=== PATIENT | male | born 2000 | race Caucasian/White ===

== ENCOUNTER 2023-11-19 13:59 | Emergency (ER) | payer OTHER, SELFPAY ==
--- NOTE | ~2023-11-19 | XR_ITS ---
EXAMINATION: XR CHEST CLINICAL INFORMATION: Chest pain status post vomiting COMPARISON: None available. TECHNIQUE: 2 views of the chest were obtained. FINDINGS: No significant abnormality is noted involving the heart, lungs, mediastinum, bony thorax or soft tissues. XR/XR chest 2V IMPRESSION: No acute disease. No evidence of pneumothorax or pneumomediastinum.
[2023-11-19 14:06] VITALS: BP 130/82; PULSE 81; O2SAT 98
--- NOTE | 2023-11-19 15:19 | ED.NAVMDI ---
HPI - Nausea/Vomiting/Diarrhea General Chief complaint: ETOH/Substance Use Stated complaint: N/V S/P ETOH RELAPSE S/P 3M CLEAN PER EMS Time Seen by Provider: 11/19/23 16:51 Source: patient Mode of arrival: ambulatory Limitations: no limitations History of Present Illness HPI Narrative: Patient with history of alcohol use was sober for last 3 months started drinking again last night had 15 nips of 100% of VODKA last night and since morning patient been vomiting with epigastric pain radiating to mid chest vomited multiple times having muscle spasm now no diarrhea no fever no chills Related Data Previous Rx's Medication Instructions Recorded cephalexin 500 mg capsule 500 mg PO Q8H 7 days #21 caps 08/11/21 Allergies Allergy/AdvReac Type Severity Reaction Status Date / Time No Known Allergies Allergy Verified 11/19/23 15:20 Review of Systems Review of Systems: Yes all other systems are reviewed and are negative [facility] Social History Social History Advance Directives: No Advance Directives Information Provided: No Physical Exam Vital Signs: Vital Signs: Last Vital Signs Temp 97.7 F 11/19/23 15:20 Pulse 72 11/19/23 16:06 Resp 16 11/19/23 16:06 BP 135/84 11/19/23 16:06 Pulse Ox 99 11/19/23 16:06 O2 Del Method Room Air 11/19/23 16:06 BMI result Body Mass Index 22.7 Appearance: Alert. Oriented X3. Actively vomiting Eyes: PERRLA, No Nystagmus ENT: Pharynx normal. Oral Mucosa dry Neck: Normal inspection. Neck supple. CVS: Normal heart rate and rhythm. Pulses normal. Respiratory: No respiratory distress. Equal air entry bilateral, Abdomen: Soft, mild epigastric tenderness Bowel sounds are present, no mass palpable, no CVA tenderness Skin: Skin warm and dry. Normal skin color. Normal skin turgor. Extremities: No lower extremity edema. No calf tenderness Neuro: Oriented X 3. No motor deficit. Fine tremor+ Course Course Course Narrative: This is an RME: Additional HPI, ROS, PE not included below will be deferred to primary provider. This is a 23 y/o M, hx of etoh abuse, depression and anxiety, presenting to the ER with complaints of nausea and vomiting. He was sober for 3 months and drank 15 nips of 100 proof vodka last night. Started vomiting at 10:00AM this AM. Plan: EKG, Labs, CXR Medications Administered Discontinued Medications Generic Name Dose Route Start Last Admin Trade Name Nicola PRN Reason Stop Dose Admin Famotidine 20 mg 11/19/23 17:05 11/19/23 17:30 Famotidine/Pf 20 Mg/2 Ml Vial IVPUSH 11/19/23 17:06 20 mg ONCE ONE Administration Sodium Chloride 1,000 mls @ 999 mls/hr 11/19/23 17:04 11/19/23 18:18 Ns IV 11/19/23 18:04 Infused .Q1H1M ONE Infusion Sodium Chloride 1,000 mls @ 999 mls/hr 11/19/23 17:08 11/19/23 18:17 Ns IV 11/19/23 18:08 999 mls/hr .Q1H1M ONE Administration Ondansetron HCl 4 mg 11/19/23 15:23 11/19/23 15:26 Ondansetron Odt 4 Mg Tab.Rapdis TRANSLINGU 11/19/23 15:24 4 mg ONCE ONE Administration Ondansetron HCl 4 mg 11/19/23 17:35 11/19/23 17:44 Ondansetron Hcl 4 Mg/2 Ml Vial IVPUSH 11/19/23 17:36 4 mg ONCE ONE Administration Medical Decision Making Medical Decision Making [facility] Narrative: Patient with acute gastritis secondary to alcohol use feeling better after IV fluids and IV Pepcid patient does not need any help will stop drinking has family support discharge patient home taking p.o. fluids in the ER Differential Diagnosis Differential Diagnoses: The differential diagnosis associated with the presentation includes Acute gastritis/pancreatitis/alcohol withdrawal Admission/Observation Consideration of admission/observation: Escalation of care including admission/observation considered Lab Data [facility] Lab Attestation statement: I reviewed the patient's lab results. 11/19/23 15:40 11/19/23 15:40 Labs: Lab Results 11/19/23 Range/Units 15:40 WBC 13.0 H (4.8-10.8) X10*3/uL RBC 4.61 (4.60-5.80) X10*6/uL Hgb 14.2 (14.0-18.0) g/dl Hct 40.4 L (42.0-52.0) % MCV 87.6 (80.0-98.0) fL MCH 30.8 (27.0-33.0) pg MCHC 35.1 (31.0-36.0) g/dl RDW 12.9 (11.0-16.0) % Plt Count 400 (160-400) X10*3/uL MPV 8.9 L (9.4-12.4) fL Immature Gran % (Auto) 0.4 (0.0-0.4) % Neut % (Auto) 83.3 H (45-73) % Lymph % (Auto) 7.6 L (20-40) % Hudson % (Auto) 7.9 (2-11) % Eos % (Auto) 0.1 (0-4) % Baso % (Auto) 0.7 (0-2) % Lymph # (Auto) 1.0 L (1.2-4.9) X10*3/uL Hudson # (Auto) 1.0 (0.1-1.2) X10*3/uL Eos # (Auto) 0.0 (0.0-0.4) X10*3/uL Baso # (Auto) 0.1 (0.0-0.2) X10*3/uL Abs Immat Gran (auto) 0.05 H (0.00-0.03) X10*3/uL Absolute Neuts (auto) 10.8 H (2.0-8.3) x10*3/uL Absolute Nucleated RBC 0.000 (0.0-0.012) X10*3/uL Nucleated RBC % (auto) 0.0 (0.0-0.2) /100WBC Sodium 139 (135-145) mmol/L Potassium 4.1 (3.3-5.1) mmol/L Chloride 97 (96-108) mmol/L Carbon Dioxide 16 L (22-29) mmol/L Anion Gap 30 H (12-20) BUN 10 (9-16) mg/dL Creatinine 1.11 (0.5-1.4) mg/dL Estim Creat Clear Calc 95.3 Estimated GFR > 60 Random Glucose 90 (60-115) mg/dL Calcium 10.2 (8.4-10.2) mg/dL Magnesium 1.7 (1.6-2.6) mg/dL Total Bilirubin 0.7 (0.0-1.0) mg/dL AST 118 H (5-37) U/L ALT 149 H (0-40) U/L Alkaline Phosphatase 100 (39-117) U/L Troponin I High Sens < 2.7 (<3.5-35.0) ng/L Total Protein 8.9 H (6.5-8.0) g/dL Albumin 5.0 (3.5-5.0) g/dL Lipase 12 (8-78) U/L Ethyl Alcohol 116 mg/dL Discharge Plan Discharge Clinical Impression: Acute alcoholic gastritis, Alcohol abuse Patient Disposition: Home, Self-Care Instructions: Gastritis (ED), Abuse of Alcohol (ED) Additional Instructions: Stop drinking alcohol Maalox /Tums as needed for gastritis Follow-up with PCP as needed Prescriptions: No Action cephalexin 500 mg capsule 500 mg PO Q8H 7 Days Qty: 21 0RF
[2023-11-19 15:20] VITALS: BP 132/90; PULSE 77; RESP 18; TEMP 36.5; O2SAT 98; BMI 22.7
--- NOTE | 2023-11-19 15:21 | ECG_ITS ---
Test Reason : CP Blood Pressure : / mmHG Vent. Rate : 063 BPM Atrial Rate : 063 BPM P-R Int : 120 ms QRS Dur : 084 ms QT Int : 432 ms P-R-T Axes : 004 055 038 degrees QTc Int : 442 ms Normal sinus rhythm Normal ECG No previous ECGs available Referred By: Ina Kay Electronically Signed By:ROSALIND SAMPSON MD
[2023-11-19] MEDS: Ondansetron ODT 4 MG TAB.RAPDIS TRANSLINGU (15:26)
[2023-11-19 15:47] LABS: MANUAL DIFF FLAG NO
[2023-11-19 15:56] LABS: Basophils Absolute Auto 0.1 X10*3/uL (0.0-0.2); Basophils Percent Auto 0.7 % (0-2); Eosinophils Percent Auto 0.1 % (0-4); Hematocrit 40.4 % (42.0-52.0); Hemoglobin 14.2 g/dl (14.0-18.0); Imm Gran Abs Auto 0.05 X10*3/uL (0.00-0.03); Imm Gran Pct Auto 0.4 % (0.0-0.4); Lymphocytes Percent Auto 7.6 % (20-40); Mean Corpuscular HGB Conc 35.1 g/dl (31.0-36.0); Mean Corpuscular Hemoglobin 30.8 pg (27.0-33.0); Mean Corpuscular Volume 87.6 fL (80.0-98.0); Mean Platelet Volume 8.9 fL (9.4-12.4); Monocytes Percent Auto 7.9 % (2-11); Neutrophils Absolute Auto 10.8 x10*3/uL (2.0-8.3); Neutrophils Percent Auto 83.3 % (45-73); Platelet Count 400 X10*3/uL (160-400); Red Blood Count 4.61 X10*6/uL (4.60-5.80); Red Cell Distribution Width 12.9 % (11.0-16.0)
[2023-11-19 16:00] LABS: Ethanol 116 mg/dL
[2023-11-19 16:06] VITALS: BP 135/84; PULSE 72; RESP 16; O2SAT 99
[2023-11-19 16:08] LABS: Alanine Aminotransferase 149 U/L (0-40); Alkaline Phosphatase 100 U/L (39-117); Anion Gap 30 (12-20); Aspartate Amino Transferase 118 U/L (5-37); Bilirubin Total 0.7 mg/dL (0.0-1.0); Blood Urea Nitrogen 10 mg/dL (9-16); Calcium 10.2 mg/dL (8.4-10.2); Carbon Dioxide 16 mmol/L (22-29); Chloride 97 mmol/L (96-108); Creatinine Clr Calc Pharmacy 95.3; Estimated Glomerular Filt Rate > 60; Glucose Random 90 mg/dL (60-115); Lipase 12 U/L (8-78); Magnesium 1.7 mg/dL (1.6-2.6); Potassium 4.1 mmol/L (3.3-5.1); Sodium 139 mmol/L (135-145); Total Protein 8.9 g/dL (6.5-8.0)
[2023-11-19 16:13] LABS: Troponin-I High Sensitivity < 2.7 ng/L (<3.5-35.0)
[2023-11-19] MEDS: 0.9 % Sodium Chloride 1,000 ML 999 ML IV ×2 (17:16→18:17)
[2023-11-19] MEDS: Famotidine/PF 20 MG/2 ML VIAL IVPUSH (17:30)
[2023-11-19] MEDS: ondansetron HCL 4 MG/2 ML VIAL IVPUSH (17:44)
--- NOTE | 2023-11-19 18:07 | PC.NURSE ---
20g iv inserted R upper outer arm. first liter of fluids started and meds given as documented. pt's mother is at his bedside.
--- NOTE | 2023-11-19 19:44 | PC.NURSE ---
This RN took over pt care @ 1900. Pt resting quietly in recliner. Mom with pt. Pt denies pain. Pt requested and given drink. Plan of care ongoing.
== END 2023-11-19 21:15 | disposition home or self-care (01) ==
PROVIDERS: Physician Assistant Medical; Emergency Provider Internal Medicine
DX: K29.20 Alcoholic gastritis without bleeding (principal); F10.120 Alcohol abuse with intoxication, uncomplicated; Y90.5 Blood alcohol level of 100-119 mg/100 ml; R11.2 Nausea with vomiting, unspecified; R10.13 Epigastric pain; F32.A Depression, unspecified; F41.9 Anxiety disorder, unspecified
CPT/HCPCS: 36415; 71046; 80053; 80307; 83690; 83735; 84484; 85025; 93005; 96361; 96374; 96375; 99284; 99285; J2405

== ENCOUNTER → 2023-11-19 15:21 | Outpatient (BNV) | payer OTHER, SELFPAY | PROVIDERS: Emergency Provider Internal Medicine; Visit Provider Internal Medicine Cardiovascular Disease | DX: R07.9 Chest pain, unspecified (principal) | CPT/HCPCS: 93010 ==

== ENCOUNTER 2024-06-18 13:43 | Emergency (ER) | payer OTHER, SELFPAY ==
[2024-06-18 14:02] VITALS: BP 143/84; PULSE 95; RESP 18; TEMP 36.7; O2SAT 97; BMI 20.8
--- NOTE | 2024-06-18 14:03 | ED.GENADULT ---
HPI - General Adult General Chief complaint: Abdominal Pain Stated complaint: abd pain Source: patient Mode of arrival: ambulatory Limitations: no limitations History of Present Illness ED Provider: Vicki Canseco PA-C HPI narrative: Patient is a 23 year old assigned male at with no reported medical history presenting to the emergency department today with abdominal pain. Patient states that over the last 7 days he has had abdominal pain and nausea. Patient denies any dizziness, lightheadedness, vomiting, fever, chills, blurry vision, double vision, loss of vision, chest pain, difficulty breathing, shortness of breath, back pain, night sweats, pain with urination, increased urinary frequency, increased urinary urgency, blood in his urine or stool, syncope or a near syncopal episode, recent trauma or falls, bowel incontinence, bladder incontinence, or any other complaints at this time. Onset (ago): day(s) (7) Location: abdomen Relieving factors: none Exacerbating factors: none Associated symptoms: nausea/vomiting Treatments prior to arrival: none Related Data Previous Rx's ?Medication ?Instructions ?Recorded cephalexin 500 mg capsule 500 mg PO Q8H 7 days #21 caps 08/11/21 Allergies Allergy/AdvReac Type Severity Reaction Status Date / Time No Known Allergies Allergy Verified 06/18/24 14:05 Review of Systems Constitutional: Constitutional: Reports no additional constitutional complaints, Denies chills, Denies fever(s) and Denies night sweats Eyes: Eyes: Reports no additional eye complaints, Denies blurry vision, Denies change in vision, Denies diplopia, Denies eye discharge, Denies loss of vision and Denies eye pain ENT: Denies dizziness Cardiovascular: Cardiovascular: Reports no additional cardiovascular complaints, Denies chest pain, Denies lightheadedness, Denies Loss of Consciousness and Denies dyspnea Respiratory: Respiratory: Reports no additional respiratory complaints and Denies dyspnea Gastrointestinal: Gastrointestinal: Reports no additional gastrointestinal complaints, Reports abdominal pain, Denies melena, Denies hematochezia, Denies change in bowel habits, Denies change in stool character and Reports nausea Genitourinary: Genitourinary: Reports no additional male genitourinary complaints, Denies hematuria, Denies oliguria, Denies difficulty urinating, Denies dysuria, Denies urinary frequency, Denies urinary hesitancy, Denies urinary incontinence and Denies urinary urgency Musculoskeletal: Musculoskeletal: Reports no additional musculoskeletal complaints, Denies numbness and Denies tingling Neurologic: Denies dizziness, Denies loss of vision, Denies numbness and Denies tingling Psychiatric: Psychiatric: Reports no additional psychiatric complaints Endocrine: Endocrine: Reports no additional endocrine complaints Hematologic/Lymphatic: Hematologic/Lymphatic: Reports no additional hematologic/lymphatic complaints Allergic/Immunologic: Allergic/Immunologic: Reports no additional allergic/immunologic complaints [facility] Past Medical History Attestation statement: The following information was validated with the patient. Source: old records reviewed and nursing notes reviewed Social History Social History Alcohol intake: current Advance Directives: No Advance Directives Information Provided: No Do you have a plan to hurt others: No Plan Physical Exam ED Vital Signs: BMI result Body Mass Index 20.8 Const General: cooperative, no acute distress, alert and awake Nutritional Appearance: well nourished Orientation/consciousness: patient oriented x3 Limitations: no limitations HENMT Head: Yes normal to inspection and Yes atraumatic Ears: hearing grossly normal bilaterally and external ears normal General nose exam: Normal external nose present, no nasal discharge noted and no epistaxis Face and sinus: Yes normal facial exam, No abrasion and No laceration Mouth: Normal oral and palatal mucosa present, no drooling and no muffled voice Eyes General: appearance normal, both eyes and all related structures Periorbital: periorbital findings normal Eyelids: Yes eyelids normal Conjunctivae: conjunctivae normal Pupils: Equal, round and reactive pupils present EOM: EOMs intact bilaterally Neck Neck: Yes normal visual inspection, Yes full ROM and Yes no lymphadenopathy Chest Chest palpation & inspection: normal inspection of the chest Resp Effort & Inspection: normal respiratory effort and able to speak in complete sentences GI Inspection: Yes normal to inspection Neuro General: patient oriented x3 and moves all extremities Cranial nerves: Yes Equal, round and reactive pupils present Cognition (Neuro): normal cognition Extrem General: Yes normal to inspection, Yes full ROM and Yes capillary refill normal Psych Appearance: grossly normal Mental Status: mental status grossly normal Affect: normal affect Attitude: cooperative Thought process: Normal thought process present Thought content: Normal thought content present Insight: Good insight present (Psych) Course Course Course Narrative: RME performed by Vicki Canseco PA-C. Patient is a 23 year old assigned male at presenting to the emergency department with abdominal pain. Patient states that he has been having abdominal pain over the last few days. Patient states that he was seen at the urgent care and they told him to come here. Detailed physical exam and review of systems are deferred to the disc pad grinder. Labs and swabs ordered. Patient placed back in the waiting room pending room availability and results. Medical Decision Making Medical Decision Making [facility] Narrative: Patient is a 23 year old assigned male at with no reported medical history presenting to the emergency department today with abdominal pain and nausea. Patient's limited physical exam performed in triage was unremarkable. Patient's blood work was unremarkable. Patient left the department without completing treatment. Patient left the department before myself or any of the other emergency department clinicians could explain to or review with the patient; physical exam findings, test results, need or lack there of for additional testing, need or lack there of for a procedure to be performed, need or lack there of for hospital admission / transfer, need or lack there of for prescription medication, treatment options, or a treatment plan. Differential Diagnosis Differential Diagnoses: The differential diagnosis associated with the presentation includes Abdominal pain Nausea Admission/Observation Consideration of admission/observation: Escalation of care including admission/observation considered Patient would have been admitted to the hospital had he completed his work up and it had any findings where hospital admission was appropriate, his clinical presentation warranted hospital admission, had myself or any other emergency sales department supervisor had the ability to discuss need or lack there of for hospital admission, and the patient hadn't left the department without completing treatment. Lab Data [facility] Lab Attestation statement: I reviewed the patient's lab results. My interpretation of these results are in the [facility] Rationale portion of this note. 06/18/24 14:19 06/18/24 14:19 Labs: Lab Results 06/18/24 Range/Units 14:19 WBC 6.4 (4.8-10.8) X10*3/uL RBC 5.09 (4.60-5.80) X10*6/uL Hgb 15.0 (14.0-18.0) g/dl Hct 43.9 (42.0-52.0) % MCV 86.2 (80.0-98.0) fL MCH 29.5 (27.0-33.0) pg MCHC 34.2 (31.0-36.0) g/dl RDW 13.1 (11.0-16.0) % Plt Count 228 D (160-400) X10*3/uL MPV 8.6 L (9.4-12.4) fL Immature Gran % (Auto) 0.5 H (0.0-0.4) % Neut % (Auto) 77.1 H (45-73) % Lymph % (Auto) 12.3 L (20-40) % Caroline % (Auto) 9.3 (2-11) % Eos % (Auto) 0.0 (0-4) % Baso % (Auto) 0.8 (0-2) % Lymph # (Auto) 0.8 L (1.2-4.9) X10*3/uL Caroline # (Auto) 0.6 (0.1-1.2) X10*3/uL Eos # (Auto) 0.0 (0.0-0.4) X10*3/uL Baso # (Auto) 0.1 (0.0-0.2) X10*3/uL Abs Immat Gran (auto) 0.03 (0.00-0.03) X10*3/uL Absolute Neuts (auto) 5.0 (2.0-8.3) x10*3/uL Absolute Nucleated RBC 0.000 (0.0-0.012) X10*3/uL Nucleated RBC % (auto) 0.0 (0.0-0.2) /100WBC Sodium 137 (135-145) mmol/L Potassium 3.8 (3.3-5.1) mmol/L Chloride 99 (96-108) mmol/L Carbon Dioxide 22 (22-29) mmol/L Anion Gap 20 (12-20) BUN 10 (9-16) mg/dL Creatinine 0.89 (0.5-1.4) mg/dL Estim Creat Clear Calc 112.5 Estimated GFR > 60 Random Glucose 92 (60-115) mg/dL Calcium 9.8 (8.4-10.2) mg/dL Magnesium 1.5 L (1.6-2.6) mg/dL Total Bilirubin 0.7 (0.0-1.0) mg/dL AST 43 H (5-37) U/L ALT 40 (0-40) U/L Alkaline Phosphatase 91 (39-117) U/L Total Protein 8.0 (6.5-8.0) g/dL Albumin 4.4 (3.5-5.0) g/dL Influenza Type A (PCR) NEGATIVE (Negative) Influenza Type B (PCR) NEGATIVE (Negative) RSV RNA Qual (PCR) NEGATIVE (Negative) SARS-CoV-2 RNA (RT-PCR) NEGATIVE (Negative) Discharge Plan Discharge Clinical Impression: Abdominal pain Patient Disposition: Left W/O Completing Treatment Prescriptions: No Action cephalexin 500 mg capsule 500 mg PO Q8H 7 Days Qty: 21 0RF Discharge Date/Time: 06/19/24 00:04
[2024-06-18 14:36] LABS: MANUAL DIFF FLAG NO
[2024-06-18 14:42] LABS: Basophils Absolute Auto 0.1 X10*3/uL (0.0-0.2); Basophils Percent Auto 0.8 % (0-2); Hematocrit 43.9 % (42.0-52.0); Imm Gran Abs Auto 0.03 X10*3/uL (0.00-0.03); Imm Gran Pct Auto 0.5 % (0.0-0.4); Lymphocytes Absolute Auto 0.8 X10*3/uL (1.2-4.9); Lymphocytes Percent Auto 12.3 % (20-40); Mean Corpuscular HGB Conc 34.2 g/dl (31.0-36.0); Mean Corpuscular Hemoglobin 29.5 pg (27.0-33.0); Mean Corpuscular Volume 86.2 fL (80.0-98.0); Mean Platelet Volume 8.6 fL (9.4-12.4); Monocytes Absolute Auto 0.6 X10*3/uL (0.1-1.2); Monocytes Percent Auto 9.3 % (2-11); Neutrophils Percent Auto 77.1 % (45-73); Platelet Count 228 X10*3/uL (160-400); Red Blood Count 5.09 X10*6/uL (4.60-5.80); Red Cell Distribution Width 13.1 % (11.0-16.0); White Blood Count 6.4 X10*3/uL (4.8-10.8)
[2024-06-18 14:52] LABS: Alanine Aminotransferase 40 U/L (0-40); Albumin Level 4.4 g/dL (3.5-5.0); Alkaline Phosphatase 91 U/L (39-117); Anion Gap 20 (12-20); Aspartate Amino Transferase 43 U/L (5-37); Bilirubin Total 0.7 mg/dL (0.0-1.0); Blood Urea Nitrogen 10 mg/dL (9-16); Calcium 9.8 mg/dL (8.4-10.2); Carbon Dioxide 22 mmol/L (22-29); Chloride 99 mmol/L (96-108); Creatinine Clr Calc Pharmacy 112.5; Estimated Glomerular Filt Rate > 60; Glucose Random 92 mg/dL (60-115); Magnesium 1.5 mg/dL (1.6-2.6); Potassium 3.8 mmol/L (3.3-5.1); Sodium 137 mmol/L (135-145)
[2024-06-18 15:24] LABS: Influenza A PCR NEGATIVE (Negative); Influenza B PCR NEGATIVE (Negative); Resp Syncy Virus RNA Qual PCR NEGATIVE (Negative); SARS COV2 PCR INHOUSE NEGATIVE (Negative)
[2024-06-18 17:45] VITALS: BP 122/75; PULSE 89; RESP 16; TEMP 36.2; O2SAT 99
--- NOTE | 2024-06-19 00:04 | PC.NURSE ---
called multple times in [place] with no answer
== END 2024-06-19 00:04 | disposition left against medical advice (07) ==
PROVIDERS: Physician Assistant Medical; Emergency Provider Emergency Medicine
DX: R10.9 Unspecified abdominal pain (principal); R11.2 Nausea with vomiting, unspecified; Z03.818 Encounter for observation for suspected exposure to other biological agents ruled out; Z79.899 Other long term (current) drug therapy
CPT/HCPCS: 0241U; 80053; 83735; 85025; 99281

== ENCOUNTER 2024-06-21 06:05 | Emergency (ER) | payer OTHER, SELFPAY ==
--- NOTE | ~2024-06-21 | CT_ITS ---
EXAMINATION: CT ABDOMEN AND PELVIS WITH CONTRAST CLINICAL INFORMATION: Epigastric pain nausea vomiting EtOH abuse COMPARISON: None available. TECHNIQUE: Multidetector volumetric images were obtained from the superior aspect of the liver through the pubic symphysis following administration 85 mL of Omnipaque 350 intravenous contrast. Sagittal and coronal reformatted images were obtained on the technologist's workstation. Oral contrast: No This CT examination was performed using dose optimization techniques as appropriate, variously including the following: *Automated exposure control *Adjustment of mA and/or kV according to patient size (this includes techniques or standardized protocols for targeted exams where dose is matched to indication/reason for exam; i.e. extremities or head) *Use of iterative reconstruction technique DLP: 335 mGy-cm FINDINGS: LUNG BASES: 5 mm pleural-based nodular focus along the lateral aspect left lower lobe (series 3, image 33). 8 mm nodular focus left lower lobe (series 3, image 49). A few tree-in-bud nodular opacities involving the right middle, right lower, and left lower lobe are noted potentially representing infectious/inflammatory etiology. Correlation with symptomatology. No pneumothorax. No large pleural effusion. Slight elevation right hemidiaphragm. LIVER, GALLBLADDER, AND BILIARY TREE: The liver is normal in size, shape, and attenuation. No focal hepatic lesion or biliary ductal dilatation is present. The gallbladder is unremarkable with no evidence of radiopaque gallstones, gallbladder wall thickening, or obvious pericholecystic inflammatory changes. PANCREAS: Unremarkable. SPLEEN: Unremarkable. 5 mm splenule. ADRENAL GLANDS: Unremarkable. KIDNEYS AND URETERS: The kidneys are normal in size, shape, and attenuation. No hydronephrosis, hydroureter, or calculi seen. No perinephric stranding. BLADDER: Urinary bladder decompressed limiting evaluation. GASTROINTESTINAL TRACT: The small and large bowel are unremarkable. The appendix is unremarkable. ABDOMINAL WALL: Fat filled right inguinal hernia. LYMPH NODES: Normal. VASCULAR: Unremarkable. PELVIC VISCERA: Unremarkable. OSSEOUS STRUCTURES: Unremarkable. CT/CT abdomen pelvis w IV con IMPRESSION: 1. No acute process of the abdomen or pelvis identified. 2. 5 mm pleural-based nodular focus along the lateral aspect left lower lobe. 8 mm nodular focus left lower lobe. Follow-up as per Fleischner criteria. 3. A few tree-in-bud nodular opacities involving the right middle, right lower, and left lower lobe are noted potentially representing infectious/inflammatory etiology. Correlation with symptomatology. 4. 5 mm splenule. 5. Fat filled right inguinal hernia. According to the UPDATED 2017 Fleischner Society recommendations, the advised follow-up imaging for multiple solid nodules, the largest measuring 6 mm or greater, is: LOW RISK PATIENT: CT at 3-6 months, then consider CT at 18-24 months.
[2024-06-21 06:06] VITALS: BP 108/89; PULSE 118; RESP 18; TEMP 37.1; O2SAT 96; BMI 23.6
[2024-06-21 06:25] LABS: Eosinophils Absolute Auto 0.1 X10*3/uL (0.0-0.4); Eosinophils Percent Auto 1.8 % (0-4); Hematocrit 47.3 % (42.0-52.0); Hemoglobin 16.7 g/dl (14.0-18.0); Imm Gran Abs Auto 0.02 X10*3/uL (0.00-0.03); Imm Gran Pct Auto 0.5 % (0.0-0.4); Lymphocytes Absolute Auto 1.4 X10*3/uL (1.2-4.9); Lymphocytes Percent Auto 34.9 % (20-40); MANUAL DIFF FLAG SCAN; Mean Corpuscular HGB Conc 35.3 g/dl (31.0-36.0); Mean Corpuscular Volume 84.9 fL (80.0-98.0); Mean Platelet Volume 8.4 fL (9.4-12.4); Monocytes Absolute Auto 0.8 X10*3/uL (0.1-1.2); Monocytes Percent Auto 20.9 % (2-11); Neutrophils Absolute Auto 1.6 x10*3/uL (2.0-8.3); Neutrophils Percent Auto 40.9 % (45-73); Platelet Count 247 X10*3/uL (160-400); Red Blood Count 5.57 X10*6/uL (4.60-5.80); Red Cell Distribution Width 13.3 % (11.0-16.0); SCAN SMEAR FLAG 1; White Blood Count 3.9 X10*3/uL (4.8-10.8)
[2024-06-21 06:40] LABS: Alanine Aminotransferase 34 U/L (0-40); Albumin Level 4.7 g/dL (3.5-5.0); Alkaline Phosphatase 87 U/L (39-117); Anion Gap 14 (12-20); Aspartate Amino Transferase 36 U/L (5-37); Bilirubin Total 0.5 mg/dL (0.0-1.0); Blood Urea Nitrogen 6 mg/dL (9-16); Carbon Dioxide 28 mmol/L (22-29); Chloride 101 mmol/L (96-108); Estimated Glomerular Filt Rate > 60; Glucose Random 113 mg/dL (60-115); Lipase 22 U/L (8-78); Potassium 3.6 mmol/L (3.3-5.1); Sodium 139 mmol/L (135-145); Total Protein 8.6 g/dL (6.5-8.0)
[2024-06-21 06:45] LABS: SLIDE REVIEW VERIFIED
[2024-06-21 07:07] VITALS: BP 115/75; PULSE 89; RESP 18; O2SAT 97
--- NOTE | 2024-06-21 07:27 | ED_ITS ---
HPI - Abdominal Pain General Chief Complaint: Abdominal Pain Stated Complaint: Abd pain Time Seen by Provider: 06/21/24 07:00 Source: patient Mode of arrival: ambulatory Limitations: no limitations History of Present Illness ED Provider: MILAGROS PITTMAN narrative: 23 yo male with PMH of alcohol abuse here with c/o 7 days epigastric pain nausea and intermittent vomiting - no vomiting in 2 days. Tried to come Tuesday but left before completing treatment. Has no hx of ETOH withdrawal seizures, GI bleeds, pancreatitis. Has not had hematemesis or melena. No diarrhea. He notes he drinks about 8-12 drinks a day. His last drink was last night. He went to urgent care who referred him for pancreatitis work up. MD elicited complaint: abdominal pain Pertinent past history: other (ETOH abuse) Onset (ago): day(s) (7) Pain Consistency: constant Location: epigastric Severity: severe Quality: stabbing and aching Radiation: bilateral flank Migration to: no migration Exacerbating factors: eating and movement Relieving factors: nothing Context: other (alcohol abuse) Associated symptoms: nausea and vomiting Related Data Previous Rx's ?Medication ?Instructions ?Recorded cephalexin 500 mg capsule 500 mg PO Q8H 7 days #21 caps 08/11/21 amoxicillin 875 mg-potassium 1 tab PO BID #10 tabs 06/21/24 clavulanate 125 mg tablet chlordiazepoxide HCl 25 mg capsule 25 mg PO Q6-8H PRN alcohol 06/21/24 withdrawal #14 caps omeprazole 20 mg capsule,delayed 20 mg PO BID #60 caps 06/21/24 release ondansetron 4 mg disintegrating 4 mg PO Q8H PRN nausea and 06/21/24 tablet vomiting #20 tabs Allergies Allergy/AdvReac Type Severity Reaction Status Date / Time No Known Allergies Allergy Verified 06/21/24 06:08 Review of Systems Review of Systems Constitutional : No Weight loss, No Fever, No Chills ENT/Mouth : No sore throat, No Rhinorrhea Eyes: No Swelling, No Redness Cardiovascular : No Chest Pain, No SOB, NoEdema Respiratory : No Cough, No Sputum, No Wheezing Gastrointestinal : Positive Nausea, Positive Vomiting, no Diarrhea, positive abdominal Pain, No Hematochezia, No Melena Genitourinary : No Dysuria, No Urinary Frequency, No Hematuria, No Urgency Musculoskeletal : No joint pain, No Myalgias, No Joint Swelling Skin : No Skin Lesions, No rash Neuro : No Weakness, No Numbness, No Dizziness, No Headache All other systems reviewed and are negative. [facility] Past Medical History Attestation statement: The following information was validated with the patient. Source: old records reviewed Social History Social History (Updated 06/21/24 @ 07:34 by Yasmeen Gamez DO) Alcohol intake: current Alcohol intake frequency: 3 or more drinks per day Patient Tobacco Use Status: Never used Tobacco Smoked in Last 30 Days: Yes Use of substances other than those prescribed or required for medical reasons: Yes Substance Use Type: Marijuana Advance Directives: No Advance Directives Information Provided: Yes Physical Exam ED Vital Signs: Vital Signs - 24 hr 06/21/24 06:06 06/21/24 07:07 06/21/24 08:00 Temperature 98.7 F 99.5 F Pulse Rate 118 H 89 86 Respiratory Rate 18 18 18 Blood Pressure 108/89 115/75 122/64 Pulse Oximetry 96 97 96 Oxygen Delivery Method Room Air Room Air Room Air BMI result Body Mass Index 23.6 Appearance: Alert. Oriented X3. No acute distress. Eyes: Pupils equal, round and reactive to light. ENT: Pharynx normal. Neck: Normal inspection. Neck supple. CVS: Normal heart rate and rhythm. Pulses normal. Respiratory: No respiratory distress. Breath sounds normal. Abdomen: Soft and moderate epigastric ttp no rebound Skin: Skin warm and dry. Normal skin color. Normal skin turgor. Extremities: No lower extremity edema. No calf ttp Neuro: Oriented X 3. No motor deficit. No sensory deficit. Course Course Course Narrative: given CT scan short course of oral antibiotics Medical Decision Making Medical Decision Making [facility] Narrative: 23 yo male with PMH of ETOH gastritis here with c/o n/v abdominal pain in setting of ETOH use. No withdrawal symptoms currently. No GIB symptoms reported. No hx of pancreatitis. At this time will obtain basic labs, lytes, start on IVF, thiamine, IV morphine for pain. Obtain CT scan for signs of pancreatitis. Differential Diagnosis Differential Diagnoses: The differential diagnosis associated with the presentation includes alcoholic gastritis, pancreatitis, biliary colic Admission/Observation Consideration of admission/observation: Escalation of care including admission/observation considered labs reassuring, CT scan no acute findings suspect ETOH gastritis feels better tolerating PO does not want detox evaluation Lab Data [facility] Lab Attestation statement: I reviewed the patient's lab results. 06/21/24 06:18 06/21/24 06:18 Labs: Lab Results 06/21/24 06/21/24 06/21/24 Range/Units 06:18 07:27 07:42 WBC 3.9 L (4.8-10.8) X10*3/uL RBC 5.57 (4.60-5.80) X10*6/uL Hgb 16.7 (14.0-18.0) g/dl Hct 47.3 (42.0-52.0) % MCV 84.9 (80.0-98.0) fL MCH 30.0 (27.0-33.0) pg MCHC 35.3 (31.0-36.0) g/dl RDW 13.3 (11.0-16.0) % Plt Count 247 (160-400) X10*3/uL MPV 8.4 L (9.4-12.4) fL Immature Gran % (Auto) 0.5 H (0.0-0.4) % Neut % (Auto) 40.9 L (45-73) % Lymph % (Auto) 34.9 (20-40) % [place] % (Auto) 20.9 H (2-11) % Eos % (Auto) 1.8 (0-4) % Baso % (Auto) 1.0 (0-2) % Lymph # (Auto) 1.4 (1.2-4.9) X10*3/uL [place] # (Auto) 0.8 (0.1-1.2) X10*3/uL Eos # (Auto) 0.1 (0.0-0.4) X10*3/uL Baso # (Auto) 0.0 (0.0-0.2) X10*3/uL Abs Immat Gran (auto) 0.02 (0.00-0.03) X10*3/uL Absolute Neuts (auto) 1.6 L (2.0-8.3) x10*3/uL Absolute Nucleated RBC 0.000 (0.0-0.012) X10*3/uL Nucleated RBC % (auto) 0.0 (0.0-0.2) /100WBC Smear Tech's Comments VERIFIED Sodium 139 (135-145) mmol/L Potassium 3.6 (3.3-5.1) mmol/L Chloride 101 (96-108) mmol/L Carbon Dioxide 28 (22-29) mmol/L Anion Gap 14 (12-20) BUN 6 L (9-16) mg/dL Creatinine 0.91 (0.5-1.4) mg/dL Estim Creat Clear Calc 121.0 Estimated GFR > 60 Random Glucose 113 (60-115) mg/dL Calcium 9.0 D (8.4-10.2) mg/dL Magnesium 2.1 (1.6-2.6) mg/dL Total Bilirubin 0.5 (0.0-1.0) mg/dL AST 36 (5-37) U/L ALT 34 (0-40) U/L Alkaline Phosphatase 87 (39-117) U/L Total Protein 8.6 H (6.5-8.0) g/dL Albumin 4.7 (3.5-5.0) g/dL Lipase 22 (8-78) U/L Urine Color Dark Yellow Urine Appearance Clear Urine pH 6.0 (5.0-9.0) Ur Specific [place] 1.025 (1.005-1.025) Urine Protein 30 (1+) H (Neg-Trace) mg/dL Urine Glucose (UA) Negative (Negative) mg/dL Urine Ketones Trace (Negative) mg/dL Urine Blood Negative (Negative) Urine Nitrite Negative (Negative) Ur Leukocyte Esterase Negative (Negative) Urine RBC 0-2 (0-2) /HPF Urine WBC 0-5 (0-5) /HPF Ur Squamous Epith Cells 0-2 (0-2) /HPF Urine Bacteria None Seen (None Seen) Hyaline Casts 0-2 (0-2) /LPF Urine Opiates Screen Not Detected (Not Detect) Ur Buprenorphine Scrn Not Detected (Not Detect) ng/mL Ur Oxycodone Screen Not Detected (Not Detect) ng/mL Urine Methadone Screen Not Detected (Not Detect) ng/mL Urine Fentanyl Screen Not Detected (Not Detect) Ur Barbiturates Screen Not Detected (Not Detect) Ur Phencyclidine Scrn Not Detected (Not Detect) Ur Amphetamines Screen Not Detected (Not Detect) U Benzodiazepines Scrn Not Detected (Not Detect) Urine Cocaine Screen Not Detected (Not Detect) U Marijuana (THC) Screen POSITIVE H (Not Detect) Ethyl Alcohol 204 mg/dL Independent Interpretation I performed an independent interpretation of an: CT Scan (no acute cause) Radiology Impression Discussion of test interpretation with radiology: I have reviewed the radiologist's reading. External Record Review External record reviewed: Outpatient record Prescription Management I considered prescription management with: Pain Medication, Antibiotic and Other Medications Administered Discontinued Medications Generic Name Dose Route Start Last Admin Trade Name Freq PRN Reason Stop Dose Admin Lactated Ringer's 1,000 mls @ 999 mls/hr 06/21/24 07:04 06/21/24 07:45 Lr IV 06/21/24 08:04 999 mls/hr .Q1H1M ONE Administration Thiamine HCl 200 mg/ Sodium 102 mls @ 204 mls/hr 06/21/24 07:15 06/21/24 09:14 Chloride IV 06/21/24 07:44 Infused ONCE ONE Infusion Iohexol 85 ml 06/21/24 08:11 06/21/24 08:12 Iohexol 350 Mg/Ml 100 Ml Infus..Btl IV 06/21/24 08:12 85 ml ONCE ONE Administration Lorazepam 1 mg 06/21/24 08:52 06/21/24 09:11 Lorazepam 2 Mg/Ml Vial IVPUSH 06/21/24 08:53 1 mg STAT STA Administration Morphine Sulfate 4 mg 06/21/24 07:14 06/21/24 07:44 Morphine Sulfate 4 Mg/Ml Cartridge IVPUSH 06/21/24 07:15 4 mg ONCE ONE Administration Protocol Ondansetron HCl 4 mg 06/21/24 07:04 06/21/24 07:43 Ondansetron Hcl 4 Mg/2 Ml Vial IVPUSH 06/21/24 07:05 4 mg ONCE ONE Administration Critical Care Time Critical Care Time Critical Care Time: Yes Total Critical Care Time: 35 Attestation: repeat assessments, feels better after IV morphine and IV ativan for pain/withdrawal I attest to this time spent taking care of the patient Discharge Plan Discharge Clinical Impression: Acute alcoholic gastritis, Alcohol use disorder Patient Disposition: Home, Self-Care Instructions: Gastritis (ED), Alcohol Use Disorder (ED) Additional Instructions: labs reassuring, CT scan no acute pathology you have incidental findings below - only follow up needed is CT scan of chest in 3 to 6 months with your doctor you are low risk possible mild inflammation of the lung would put on short course of oral antibiotics. please talk to your doctor about cutting down your alcohol CT/CT abdomen pelvis w IV con IMPRESSION: 1. No acute process of the abdomen or pelvis identified. 2. 5 mm pleural-based nodular focus along the lateral aspect left lower lobe. 8 mm nodular focus left lower lobe. Follow-up as per Fleischner criteria. 3. A few tree-in-bud nodular opacities involving the right middle, right lower, and left lower lobe are noted potentially representing infectious/inflammatory etiology. Correlation with symptomatology. 4. 5 mm splenule. 5. Fat filled right inguinal hernia. According to the UPDATED 2017 Fleischner Society recommendations, the advised follow-up imaging for multiple solid nodules, the largest measuring 6 mm or greater, is: LOW RISK PATIENT: CT at 3-6 month Prescriptions: New omeprazole 20 mg capsule,delayed release(DR/EC) 20 mg PO BID Qty: 60 0RF chlordiazepoxide HCl 25 mg capsule 25 mg PO Q6-8H PRN (Reason: alcohol withdrawal) Qty: 14 0RF amoxicillin-pot clavulanate 875-125 mg tablet 1 tab PO BID Qty: 10 0RF ondansetron 4 mg tablet,disintegrating 4 mg PO Q8H PRN (Reason: nausea and vomiting) Qty: 20 0RF No Action cephalexin 500 mg capsule 500 mg PO Q8H 7 Days Qty: 21 0RF Referrals: Subhash Arceo MD [Primary Care Provider] - 5 days Print Language: Polish
[2024-06-21] MEDS: Thiamine HCL 200 MG in 0.9 % Sodium Chloride 100 ML 204 MG IV (07:43)
[2024-06-21] MEDS: ondansetron HCL 4 MG/2 ML VIAL IVPUSH (07:43)
[2024-06-21] MEDS: Morphine Sulfate 4 MG/ML CARTRIDGE IVPUSH (07:44)
[2024-06-21 07:45] LABS: Amphetamine Screen Urine Not Detected (Not Detect); Barbiturates, Urine Not Detected (Not Detect); Benzodiazepines Screen Urine Not Detected (Not Detect); Buprenorphine Scr Not Detected (Not Detect); Cannabinoid Screen Urine POSITIVE (Not Detect); Cocaine Screen Urine Not Detected (Not Detect); Fentanyl, urine Not Detected (Not Detect); Methadone Screen, Urine Not Detected (Not Detect); Opiate Screen Urine Not Detected (Not Detect); Oxycodone Screen Urine Not Detected (Not Detect); Phencyclidine Screen Urine Not Detected (Not Detect)
[2024-06-21] MEDS: Lactated Ringers 1,000 ML 999 ML IV (07:45)
[2024-06-21 07:46] LABS: Ethanol 204 mg/dL; Magnesium 2.1 mg/dL (1.6-2.6)
[2024-06-21 07:48] LABS: Appearance Urine Clear; Color Urine Dark Yellow; Glucose Urine UA Negative (Negative); Leukocyte Esterase Urine Negative (Negative); Nitrite Urine Negative (Negative); Specific Gravity - Urine 1.025 (1.005-1.025); UMIC TRIGGER UACC YES; Urine Blood Negative (Negative); Urine Ketones Trace mg/dL (Negative); Urine Protein 30 (1+) mg/dL (Neg-Trace)
[2024-06-21 07:53] LABS: Bacteria Urine None Seen (None Seen); Hyaline Casts Urine 0-2 /LPF (0-2); RBC Urine 0-2 /HPF (0-2); Squamous Epithelial Cell Urine 0-2 /HPF (0-2); WBC Urine 0-5 /HPF (0-5)
[2024-06-21 08:00] VITALS: BP 122/64; PULSE 86; RESP 18; TEMP 37.5; O2SAT 96
[2024-06-21] MEDS: iohexoL 350 MG/ML 100 ML INFUS..BTL 85 ML IV (08:12)
[2024-06-21] MEDS: LORazepam 2 MG/ML VIAL 1 MG IVPUSH (09:11)
[2024-06-21 09:58] VITALS: BP 132/74; PULSE 92; RESP 16; TEMP 36.7; O2SAT 99
== END 2024-06-21 10:01 | disposition home or self-care (01) ==
PROVIDERS: Emergency Provider Emergency Medicine; PCP Internal Medicine
DX: K29.20 Alcoholic gastritis without bleeding (principal); R10.13 Epigastric pain; R11.2 Nausea with vomiting, unspecified; F10.90 Alcohol use, unspecified, uncomplicated; Y90.7 Blood alcohol level of 200-239 mg/100 ml; Z79.899 Other long term (current) drug therapy
CPT/HCPCS: 36415; 74177; 80053; 80307; 81001; 83690; 83735; 85025; 96365; 96366; 96375; 99284; J2060; J2270; J2405; J3411; J7120; Q9967

== ENCOUNTER 2025-01-07 10:32 | Emergency (ER) | payer OTHER, SELFPAY ==
--- NOTE | ~2025-01-07 | US_ITS ---
Examination: Ultrasound x-ray nonvascular limited. CLINICAL INDICATION: Left axillary regions swelling/pain COMPARISON: None. TECHNIQUE: Limited ultrasound imaging through left axilla was performed. FINDINGS: Imaging to the left axilla reveals anechoic septated cystic lesion measuring 2.72 x 2.18 x 2.35 cm. There is central increased vascularity within. There is adjacent left benign-appearing lymph nodes measuring 2.4 x 1.1 x 1.2 cm, 0.9 x 0.6 x 0.7 cm and 1.1 x 0.8 x 1.17 seen. Rest of the soft tissues are normal. US/US extremity nonvascular galvez IMPRESSION: Complex cystic lesion left axilla likely inflammatory or infectious lymph node. The lesion can be easily aspirated/biopsied for further evaluation. There are adjacent benign appearing lymph nodes. Electronically signed by: Galindo Allison MD 01/07/2025 01:07 PM OLGA
[2025-01-07 10:52] VITALS: BP 129/71; PULSE 70; RESP 16; TEMP 36.6; O2SAT 99; BMI 22.8
--- NOTE | 2025-01-07 10:53 | ED_ITS ---
HPI - General Adult General Chief complaint: General Medical Stated complaint: pain in shoulder/armpit Time Seen by Provider: 01/07/25 13:12 Source: patient Mode of arrival: ambulatory Limitations: no limitations History of Present Illness ED Provider: MILAGROS PITTMAN narrative: 24 yo male with no sig PMH here with c/o having some pain in his L axillary region for a while but then past two days has more swelling. No fevers, nightsweats, weight loss. He denies any other issues such as cough. He came in for US via his PCP office. This has never happened before. No trauma reported. MD complaint: L armpit pain/swelling Onset (ago): day(s) (2) Location: left and upper extremity Radiation: non-radiation Severity: mild Quality: aching Pain Consistency: intermittent Relieving factors: immobilization Exacerbating factors: movement Associated symptoms: denies other symptoms Treatments prior to arrival: none Related Data Previous Rx's ?Medication ?Instructions ?Recorded cephalexin 500 mg capsule 500 mg PO Q8H 7 days #21 caps 08/11/21 amoxicillin 875 mg-potassium 1 tab PO BID #10 tabs 06/21/24 clavulanate 125 mg tablet chlordiazepoxide HCl 25 mg capsule 25 mg PO Q6-8H PRN alcohol 06/21/24 withdrawal #14 caps omeprazole 20 mg capsule,delayed 20 mg PO BID #60 caps 06/21/24 release ondansetron 4 mg disintegrating 4 mg PO Q8H PRN nausea and 06/21/24 tablet vomiting #20 tabs amoxicillin 875 mg-potassium 1 tab PO BID #14 tabs 01/07/25 clavulanate 125 mg tablet Allergies Allergy/AdvReac Type Severity Reaction Status Date / Time No Known Allergies Allergy Verified 01/07/25 10:55 Review of Systems Review of Systems: Constitutional : No Fever, No Chills ENT/Mouth : No Ear Pain, No Hoarseness, No sore throat Eyes: No Eye Pain, No Swelling, No Redness, No Foreign Body Cardiovascular : No Chest Pain, No SOB Respiratory : No Cough, No Dyspnea Gastrointestinal : No Nausea, No Vomiting, No Diarrhea, No abdominal Pain Genitourinary : No Dysuria, No Hematuria Musculoskeletal : positive axillary pain, No Myalgias, No Joint Swelling Skin : No Skin lacerations, No rash Neuro : No Weakness, No Numbness All other systems reviewed and are negative [facility] Past Medical History Attestation statement: The following information was validated with the patient. Source: old records reviewed Medical History (Updated 01/07/25 @ 13:26 by Yasmeen Gamez DO) Foreign body in foot, right Social History Social History Alcohol intake: current Alcohol intake frequency: 3 or more drinks per day Patient Tobacco Use Status: Never used Tobacco Substance Use Type: Marijuana Physical Exam ED Vital Signs: Vital Signs - 24 hr 01/07/25 10:52 Temperature 98 F Pulse Rate 70 Respiratory Rate 16 Blood Pressure 129/71 Pulse Oximetry 99 Oxygen Delivery Method Room Air BMI result Body Mass Index 22.8 Appearance: Alert. Oriented X3. No acute distress. Eyes: Pupils equal, round and reactive to light. ENT: Pharynx normal. Neck: Normal inspection. Neck supple. CVS: Normal heart rate and rhythm. Pulses normal. Respiratory: No respiratory distress. Breath sounds normal. Abdomen: Soft and nontender. Skin: Skin warm and dry. Normal skin color. Normal skin turgor. Extremities: No lower extremity edema. L axillary area soft but swollen area no overlying erythema distal NV intact Neuro: Oriented X 3. No motor deficit. No sensory deficit. CN2-12 intact Course Course Course Narrative: RME performed by Vicki Canseco PA-C. Patient is a 24 year old assigned male at presenting to the emergency department with left arm pit and pectoral pain. Patient states that over the last month he has been having pain in the left arm pit / carrillo and has an ultrasound ordered by his PCP but has not heard back from them for scheduling. Detailed physical exam and review of systems are deferred to the corporate specialist. Patient placed back in the waiting room pending room availability. Medical Decision Making Medical Decision Making MDM Narrative: 24 yo male with no PMH here with c/o L axillary pain and swelling - no signs of infection she is NV intact. At this time will obtain US to evaluate the area. He has no any other concerning systemic symptoms such as night sweats, weight loss, fevers. US and refer to surgery will start on trial for oral abx Differential Diagnosis Differential Diagnoses: The differential diagnosis associated with the presentation includes lymph node, swelling, muscular pain Independent Interpretation I performed an independent interpretation of an: Ultrasound (+ lymphadenopathy) Radiology Impression Discussion of test interpretation with radiology: I have reviewed the radiologist's reading. External Record Review External record reviewed: Outpatient record Prescription Management I considered prescription management with: Antibiotic Discharge Plan Discharge Clinical Impression: Lymphadenopathy Patient Disposition: Home, Self-Care Instructions: Lymphadenopathy (ED) Additional Instructions: we are going to trial an antibiotic to see if this helps please make sure you are following closely with your primary care doctor as well return for fevers, weight loss, difficulty breathing or any other concerns call surgery to schedule outpatient follow up On amoxicillin-clavulanate, softer bowel movements are to be expected. Call your provider if you move your bowels more than 4 times a day, your bowel movements are almost all liquid, or you get a rash.? US/US extremity nonvascular galvez IMPRESSION: Complex cystic lesion left axilla likely inflammatory or infectious lymph node. The lesion can be easily aspirated/biopsied for further evaluation. Prescriptions: New amoxicillin-pot clavulanate 875-125 mg tablet 1 tab PO BID Qty: 14 0RF No Action omeprazole 20 mg capsule,delayed release(DR/EC) 20 mg PO BID Qty: 60 0RF chlordiazepoxide HCl 25 mg capsule 25 mg PO Q6-8H PRN (Reason: alcohol withdrawal) Qty: 14 0RF amoxicillin-pot clavulanate 875-125 mg tablet 1 tab PO BID Qty: 10 0RF ondansetron 4 mg tablet,disintegrating 4 mg PO Q8H PRN (Reason: nausea and vomiting) Qty: 20 0RF cephalexin 500 mg capsule 500 mg PO Q8H 7 Days Qty: 21 0RF Referrals: [facility] [place] General Surgeons [Provider Group] Print Language: Armenian
[2025-01-07 13:31] VITALS: BP 129/71; PULSE 70; RESP 16; TEMP 36.6; O2SAT 99
--- OUTSIDE RECORDS SUMMARY | 2025-01-07 15:37 | XMS_ITS | Encounter Summary ---
Author Organization [facility] Address [address] [place] [address] Phone Care Team Providers Care It Data Architect Name Role Phone Jt Hylton MD Primary Care Provider [phone] Reason for Visit * Reason Comments Med Refill Encounter Details Date Type Department Care Team (Late st Contact Info) Description 09/27/2023 Refill [facility] [address] [place] [address] [place] [id number] Jt Hylton MD [address] [place] [address] [place] [id number] Reactive depression Social History Tobacco Use Types Packs/Day Years Used Date Smoking Tobacco: Former Smokeless Tobacco: Never Comments:Current Some Day Sm oker Alcohol Use Standard Drinks/Week Comments No 0 (1 standard drink = 0.6 oz pur e alcohol) Hunger/Food Answer Date Recorded In the last 12 months, did y ou or your family ever eat less than you felt you should because there wasn't enough money for food? No 09/10/2022 Stable Housing Answer Date Recorded Are you worried that in the next 2 months you may not have stable housing? No 09/10/2022 Transportation Concerns Answer Date Rec orded In the last 12 months, have you or your family ever had to go without healthcare because you didn't have a way to get there? No 09/10/2022 Hazards in Home Answer Date Recorded Think about the place you li ve. Do you have problems with any of the following? Pests (mice or roaches), mold, no/not working smoke detectors, water leaks, no window guards. No 2021 Financing Utilities Answer Date Recorde d In the last 12 months, has t he electric, gas, oil, or water company threatened to shut off your services in your home? No 09/10/2022 Safety at Home Answer Date Recorded Are you or your family worried about feeling saf e in your home? No 09/10/2022 Outside Support Answer Date Recorded Do you feel that you need mo re support from other people or programs to help you care for yourself or your family? No 09/10/2022 Understanding Health Concerns Answer Da te Recorded Do you need help understandi ng your or your child's healthcare needs (diagnosis, medications, plan, etc.)? No 09/10/2022 Financing Health Concerns Answer Date R ecorded In the last 12 months, was t here a time when your child needed to see a doctor or get medications or supplies but could not because of cost? No 09/10/2022 Missing School or Work Answer Date Anderson rded Did you or your child miss s chool or work because of a health problem that could have been avoided? No 09/10/2022 Sex and Gender Information Value Date Recorded Sex Assigned at Not on file Legal Sex Male 6:31 PM EDT Gender Identity Not on file Sexual Orientation Straight 07/12/2019 9: 21 AM EDT documented as of this encounter Plan of Treatment Not on file documented as of this encounter Visit Diagnoses Diagnosis Reactive depression documented in this encounter Care Teams It Data Architect Relationship Specialty Start Date End Date Jt Hylton MD [facility] [address] [facility] [place] [id number] PCP - General 03/15/18 documented as of this encounter
--- OUTSIDE RECORDS SUMMARY | 2025-01-07 15:37 | XMS_ITS | Clinical Summary ---
Author Organization [facility] Address [address] [place] [phone] Phone Care Team Providers Care Colloid Mill Operator Name Role Phone Subhash Arceo MD Primary Care Provider [phone] Allergies No known active allergies Encounters Date Type Department Care Team Description 12/22/2024 10:58 PM EST - 12/22/2024 11:52 PM [facility] Emergency [address] [place] [phone] Encounter for medical assessment (Primary Dx) Discharge Disposition: Home or Self Care 11/19/2024 9:19 AM EST - 11/19/2024 9:53 AM [facility] Emergency [address] [place] [phone] Garth Anaya MD Alcohol use disorder (Primary Dx) Discharge Disposition: Home or Self Care 11/12/2024 3:24 PM EST - 11/12/2024 4:04 PM [facility] Emergency [address] [place] [phone] Alcohol use (Primary Dx) Discharge Disposition: Home or Self Care from Last 3 Months Medical History Medical History Date Comments Alcohol abuse Depression Social History Tobacco Use Types Packs/Day Years Used Date Smoking Tobacco: Every Day Cigarettes Smokeless Tobacco: Current Tobacco Cessation:Ready to Q uit: Not Asked; Counseling Given: Not Answered Alcohol Use Standard Drinks/Week Comments Yes 10 (1 standard drink = 0.6 oz pu re alcohol) Sex and Gender Information Value Date Recorded Sex Assigned at Male 11/12/2024 3:50 PM EST Legal Sex Male 10:57 AM EST Gender Identity Male 11/12/2024 3:50 PM EST Sexual Orientation Choose not to disclose 2024 3:54 PM EST Obstetrics History Last Filed Vital Signs Vital Sign Reading Time Taken Comments Blood Pressure 119/52 12/22/2024 9:38 PM EST Pulse 90 12/22/2024 9:38 PM EST Temperature 37.1 ??C (98.8 ??F) 12/22/2024 9:38 PM ES T Respiratory Rate 18 12/22/2024 9:38 PM EST Oxygen Saturation 98% 12/22/2024 9:38 PM EST Inhaled Oxygen Concentration - - Weight 68 kg (150 lb) 12/22/2024 9:38 PM EST Height 172.7 cm (5' 8 ) 12/22/2024 9:38 PM EST Body Mass Index 22.81 12/22/2024 9:38 PM EST Plan of Treatment Health Maintenance Due Date Last Done Comments Pneumococcal Vaccine: Pediatrics (0 to 5 Years) and At-Risk Patients (6 to 64 Years) (1 of 1 - PPSV23) 2005 12/09/2000, 09/09/2000, 06/21/2000 COVID-19 Vaccine (2023- season) 2024 Influenza Vaccine (#1) 2024 Cholesterol Screening (Lipid Panel) 11/12/2024 Depression Screening 11/12/2024 HIV Screening 11/12/2024 Hepatitis C Screening 11/12/2024 Social Influencers of Health Screening 11/12/2024 DTaP,Tdap,and Td Vaccines (8 - Td or Tdap) 05/16/2030 05/16/2020, 07/28/2010, 09/11/2004, Additional history exists HIB Vaccines Completed 12/09/2000, 03/07, 01/18/2000, Additional history exists Hepatitis B Vaccines Completed 12/09/2000, 03/21/2000, 1999 IPV Vaccines Completed 09/11/2004, 03/08, 01/18/2000, Additional history exists MMR Vaccines Completed 09/11/2004, 09/09/2000 Varicella Vaccines Completed 08/25/2010, 09/09/2000 Hepatitis A Vaccines Completed 12/28/2016, 11/21/19 Meningococcal ACWY Vaccine Completed 12/28/2016, HPV Vaccines Completed 07/11/2018, 12/09, 11/21/2014 Meningococcal B Vacine Aged Out No lo nger eligible based on patient's age to complete this topic RSV Immunization Patients Under 20 months Aged Out No longer eligible based on patient's age to complete this topic Procedures Procedure Name Priority Date/Time Associated Diagnosis Comments ECG 12-LEAD STAT 11/19/2024 12:08 AM EST METHADONE SCREEN, URINE STAT 11/19/2024 12:04 AM EST PHENCYCLIDINE, URINE STAT 11/19/2024 12:04 AM EST BUPRENORPHINE SCREEN, URINE STAT 11/19/2024 12:04 AM EST DRUG ABUSE SCREEN 8A PANEL, URINE STAT 11/19/2024 12:04 AM EST ECG ANNOTATED 11/19/2024 CBC WITH AUTO DIFFERENTIAL STAT 11/18/2024 10:40 PM EST CBC AND DIFFERENTIAL STAT 11/18/2024 10:40 PM EST COMPREHENSIVE METABOLIC PANEL STAT 11/18/2024 10:40 PM EST LIPASE STAT 11/18/2024 10:40 PM EST MAGNESIUM STAT 11/18/2024 10:40 PM EST ETHANOL STAT 11/18/2024 10:40 PM EST METHADONE SCREEN, URINE STAT 11/12/2024 12:35 PM EST PHENCYCLIDINE, URINE STAT 11/12/2024 12:35 PM EST BUPRENORPHINE SCREEN, URINE STAT 11/12/2024 12:35 PM EST DRUG ABUSE SCREEN 8A PANEL, URINE STAT 11/12/2024 12:35 PM EST TIGER TOP URINE TUBE Routine 11/12/2024 12:34 PM EST MICHELLE URINE CULTURE TUBE Routine 11/12/2024 12:34 PM EST EXTRA TUBES Routine 11/12/2024 12:34 PM EST CBC WITH AUTO DIFFERENTIAL STAT 11/12/2024 12:12 PM EST CBC AND DIFFERENTIAL STAT 11/12/2024 12:12 PM EST COMPREHENSIVE METABOLIC PANEL STAT 11/12/2024 12:12 PM EST LIPASE STAT 11/12/2024 12:12 PM EST MAGNESIUM STAT 11/12/2024 12:12 PM EST ETHANOL STAT 11/12/2024 12:12 PM EST from Last 3 Months Results * ECG 12 lead (11/19/2024 12:08 AM EST) Ventricular Rate ECG 79 BPM GEMUSE Atrial Rate 79 BPM GEMUSE P-R Interval 144 ms GEMUSE QRS Duration 94 ms GEMUSE Q-T Interval 360 ms GEMUSE QTc 412 ms GEMUSE P Wave [place] 30 degrees GEMUSE R [place]sea 75 degrees GEMUSE T [place] 34 degrees GEMUSE ECG Interpretation Normal sinus rhythm Normal ECG No previous ECGs available Confirmed by Lux MAHAN JOHN ([id number]) on 11/19/2024 10:15:27 PM GEMUSE 11/19/2024 12:0 8 AM EST 11/19/2024 10:15 PM EST us Garth Anaya MD ECG ORDERABLES Final Res ult GEMUSE * Drug abuse screen 8a panel, urine (11/19/2024 12:04 AM EST) Only the most recent of2 resultswithin the time period is included. Amphetamine Screen, Ur Negative Negative LAB CHEMISTRY METHOD 11/19/2024 12:42 AM [facility] Comment:Certain OTC medicati ons containing ephedrine, phenylephrine, pseudoephedrine and phenylpropanolamine can cause false positive results. Barbiturate Screen, Ur Negative Negative LAB CHEMISTRY METHOD 11/19/2024 12:42 AM EST [facility] Benzodiazepine Screen, Ur Negative Negative LAB CHEMISTRY METHOD 11/19/2024 12:42 AM [facility] Cocaine Screen, Ur Negative Negative LAB CHEMISTRY METHOD 11/19/2024 12:42 AM [facility] Opiate Screen, Ur Negative Negative LAB CHEMISTRY METHOD 11/19/2024 12:42 AM [facility] Cannabinoid (THC) Screen, Ur Negative Negative LAB CHEMISTRY METHOD 11/19/2024 12:42 AM [facility] Comment:Specimens from patie nts taking pantoprazole sodium (Protonix) have been shown to produce false positive results. Oxycodone Screen, Ur Negative Negative LAB CHEMISTRY METHOD 11/19/2024 12:42 AM [facility] Fentanyl, Ur Negative Negative LAB CHEMISTRY METHOD 11/19/2024 12:42 AM [facility] Urine Urine specimen obtained by clean catch procedure / Unknown Non-blood Collection / Unknown 11/19/2024 12:04 AM EST 11/19/2024 12:18 AM EST [facility] - 11/19/2024 12:42 AM EST Assay cutoffs: Amphetamines ? 1000 ng/mL Barbiturates ?200 ng/mL Benzodiazepines ?? 200 ng/mL Cocaine ? 300 ng/mL Fentanyl ?1 ng/mL Opiates ? 300 ng/mL Oxycodone ? 100 ng/mL THC ?50 ng/mL Semi-quantitative assay for screening purposes only. Unconfirmed screening result should not be used for non-medical purposes. *ALTERNATE METHOD CONFIRMATION DONE UPON REQUEST ONLY* Garth Anaya MD LAB URINE ORDERABLES Arielle l Result Performing Organization Address [facility] de Phone Number [facility] [address] [place] [address], * Buprenorphine screen, urine (11/19/2024 12:04 AM EST) Only the most recent of2 resultswithin the time period is included. Buprenorphine Screen Urine Negative Negative LAB CHEMISTRY METHOD 11/19/2024 12:42 AM EST [facility] Urine Urine specimen obtained by clean catch procedure / Unknown Non-blood Collection / Unknown 11/19/2024 12:04 AM EST 11/19/2024 12:18 AM EST Narrative [facility] - 11/19/2024 12:42 AM EST Assay cutoff 5 ng/mL Semi-quantitative assay for screening purposes only. Unconfirmed screening result should not be used for non-medical purposes. *ALTERNATE METHOD CONFIRMATION DONE UPON REQUEST ONLY* Garth Anaya MD LAB URINE ORDERABLES Arielle l Result Performing Organization Address [facility] de Phone Number [facility] [address] [place] [address], * Methadone, urine (11/19/2024 12:04 AM EST) Only the most recent of2 resultswithin the time period is included. Methadone Screen, Urine Negative Negative LAB CHEMISTRY METHOD 11/19/2024 12:42 AM EST [facility] Comment: Assay cutoff 300 ng/mL Semi-quantitative assay for screening purposes only. Unconfirmed screening result should not be used for non-medical purposes. *ALTERNATE METHOD CONFIRMATION DONE UPON REQUEST ONLY* Urine Urine specimen obtained by clean catch procedure / Unknown Non-blood Collection / Unknown 11/19/2024 12:04 AM EST 11/19/2024 12:18 AM EST Garth Anaya MD LAB URINE ORDERABLES Arielle l Result Performing Organization Address [facility]/ZIP Co de Phone Number [facility] [address] [place] [address], [place] [phone] * Phencyclidine, urine (11/19/2024 12:04 AM EST) Only the most recent of2 resultswithin the time period is included. PCP Scrn, Ur Negative Negative LAB CHEMISTRY METHOD 11/19/2024 12:42 AM EST [facility] Comment: Assay cutoff 25 ng/mL Semi-quantitative assay for screening purposes only. Unconfirmed screening result should not be used for non-medical purposes. *ALTERNATE METHOD CONFIRMATION DONE UPON REQUEST ONLY* Urine Urine specimen obtained by clean catch procedure / Unknown Non-blood Collection / Unknown 11/19/2024 12:04 AM EST 11/19/2024 12:18 AM EST Garth Anaya MD LAB URINE ORDERABLES Arielle l Result Performing Organization Address City/[facility]/ZIP Co de Phone Number [facility] [address] [place] [address], [place] [phone] * ECG-Annotated (11/19/2024) Provider Onbase ECG ORDERABLES Final Result * (ABNORMAL) CBC auto differential (11/18/2024 10:40 PM EST) Only the most recent of2 resultswithin the time period is included. WBC 5.0 4.8 - 10.8 K/mcL LAB HEMETOLOGY METHOD 11/18/2024 10:57 PM EST [facility] RBC 4.90 4.50 - 5.50 M/mcL LAB HEMETOLOGY METHOD 11/18/2024 10:57 PM [facility] Hemoglobin 13.9 13.5 - 17.5 g/dL LAB HEMETOLOGY METHOD 11/18/2024 10:57 PM [facility] Hematocrit 41.3(L) 42.0 - 54.0 % LAB HEMETOLOGY METHOD 11/18/2024 10:57 PM [facility] MCV 84.1 79.0 - 98.0 FL LAB HEMETOLOGY METHOD 11/18/2024 10:57 PM [facility] MCH 28.3 27.0 - 32.0 pcg LAB HEMETOLOGY METHOD 11/18/2024 10:57 PM [facility] MCHC 33.7 32.0 - 37.0 g/dL LAB HEMETOLOGY METHOD 11/18/2024 10:57 PM [facility] RDW 12.2 11.0 - 15.0 % LAB HEMETOLOGY METHOD 11/18/2024 10:57 PM [facility] Platelets 226 130 - 400 K/mcL LAB HEMETOLOGY METHOD 11/18/2024 10:57 PM [facility] MPV 9.2 7.0 - 11.0 FL LAB HEMETOLOGY METHOD 11/18/2024 10:57 PM [facility] NRBC 0.0 <1.0 % LAB HEMETOLOGY METHOD 11/18/2024 10:57 PM [facility] NRBC Absolute 0.00 <0.10 K/mcL LAB HEMETOLOGY METHOD 11/18/2024 10:57 PM [facility] Neutrophils Relative 47.6 % LAB HEMETOLOGY METHOD 11/18/2024 10:57 PM [facility] Lymphocytes Relative 33.7 % LAB HEMETOLOGY METHOD 11/18/2024 10:57 PM [facility] Monocytes Relative 15.5 % LAB HEMETOLOGY METHOD 11/18/2024 10:57 PM [facility] Eosinophils Relative 2.2 % LAB HEMETOLOGY METHOD 11/18/2024 10:57 PM [facility] Basophils Relative 0.8 % LAB HEMETOLOGY METHOD 11/18/2024 10:57 PM [facility] Immature Granulocytes Relative 0.2 % LAB HEMETOLOGY METHOD 11/18/2024 10:57 PM [facility] Neutrophils Absolute 2.37 1.50 - 7.00 K/mcL LAB HEMETOLOGY METHOD 11/18/2024 10:57 PM [facility] Lymphocytes Absolute 1.68 1.00 - 5.00 K/mcL LAB HEMETOLOGY METHOD 11/18/2024 10:57 PM [facility] Monocytes Absolute 0.77 0.20 - 1.00 K/mcL LAB HEMETOLOGY METHOD 11/18/2024 10:57 PM EST [facility] Eosinophils Absolute 0.11 0.00 - 0.50 K/mcL LAB HEMETOLOGY METHOD 11/18/2024 10:57 PM [facility] Basophils Absolute 0.04 0.00 - 0.20 K/mcL LAB HEMETOLOGY METHOD 11/18/2024 10:57 PM [facility] Immature Granulocytes Absolute 0.01 0.00 - 0.03 K/mcL LAB HEMETOLOGY METHOD 11/18/2024 10:57 PM [facility] Blood Venous blood specimen / Unknown Venipuncture / Unknown 11/18/2024 10:40 PM EST 11/18/2024 10:51 PM EST us Garth Anaya MD LAB BLOOD ORDERABLES Arielle l Result [facility] [address] [place] [address], [place] [phone] * Magnesium (11/18/2024 10:40 PM EST) Only the most recent of2 resultswithin the time period is included. Pathologist [facility] Magnesium 2.0 1.9 - 2.6 mg/dL LAB CHEMISTRY METHOD 11/18/2024 11:18 PM EST [facility] Blood Venous blood specimen / Unknown Venipuncture / Unknown 11/18/2024 10:40 PM EST 11/18/2024 10:51 PM EST Garth Anaya MD LAB BLOOD ORDERABLES Arielle l Result Performing Organization Address City/[facility]/ZIP Co de Phone Number [facility] [address] [place] [address], [place] [phone] * Lipase (11/18/2024 10:40 PM EST) Only the most recent of2 resultswithin the time period is included. [facility] Lipase 29 13 - 75 unit/L LAB CHEMISTRY METHOD 11/18/2024 11:18 PM EST [facility] Blood Venous blood specimen / Unknown Venipuncture / Unknown 11/18/2024 10:40 PM EST 11/18/2024 10:51 PM EST Garth Anaya MD LAB BLOOD ORDERABLES Arielle l Result Performing Organization Address City/[facility]/ZIP Co de Phone Number [facility] [address] [place] [address], [place] [phone] * (ABNORMAL) Ethanol (11/18/2024 10:40 PM EST) Only the most recent of2 resultswithin the time period is included. [facility] Ethanol Level 298(H) 0 - 10 mg/dL LAB CHEMISTRY METHOD 11/18/2024 11:37 PM EST [facility] Blood Venous blood specimen / Unknown Venipuncture / Unknown 11/18/2024 10:40 PM EST 11/18/2024 10:51 PM EST us Garth Anaya MD LAB BLOOD ORDERABLES Arielle yesica Result [facility] [address] [place] [address], [place] [phone] * (ABNORMAL) Comprehensive metabolic panel (11/18/2024 10:40 PM EST) Only the most recent of2 resultswithin the time period is included. Sodium 140 133 - 145 mmol/L LAB CHEMISTRY METHOD 11/18/2024 11:18 PM [facility] Potassium 3.3(L) 3.5 - 5.5 mmol/L LAB CHEMISTRY METHOD 11/18/2024 11:18 PM [facility] Chloride 106 96 - 110 mmol/L LAB CHEMISTRY METHOD 11/18/2024 11:18 PM [facility] CO2 29 21 - 32 mmol/L LAB CHEMISTRY METHOD 11/18/2024 11:18 PM [facility] Anion Gap 5 3 - 11 LAB CHEMISTRY METHOD 11/18/2024 11:18 PM [facility] Glucose 114(H) 70 - 100 mg/dL LAB CHEMISTRY METHOD 11/18/2024 11:18 PM [facility] BUN 13 5 - 25 mg/dL LAB CHEMISTRY METHOD 11/18/2024 11:18 PM [facility] Creatinine 1.53(H) 0.70 - 1.30 mg/dL LAB CHEMISTRY METHOD 11/18/2024 11:18 PM [facility] eGFR 64 >=60 mL/min/1. 73m2 LAB CHEMISTRY METHOD 11/18/2024 11:18 PM [facility] Comment:Calculation based on the??Chronic Kidney Disease Epidemiology Collaboration (CKD-EPI) equation refit??without adjustment for race. BUN/Creatinine Ratio 8.5 LAB CHEMISTRY METHOD 11/18/2024 11:18 PM [facility] Calcium 9.2 8.5 - 10.5 mg/dL LAB CHEMISTRY METHOD 11/18/2024 11:18 PM [facility] AST (SGOT) 23 10 - 42 unit/L LAB CHEMISTRY METHOD 11/18/2024 11:18 PM [facility] ALT (SGPT) 23 10 - 60 unit/L LAB CHEMISTRY METHOD 11/18/2024 11:18 PM [facility] Alkaline Phosphatase 107 42 - 121 unit/L LAB CHEMISTRY METHOD 11/18/2024 11:18 PM [facility] Total Protein 7.9 6.0 - 8.0 g/dL LAB CHEMISTRY METHOD 11/18/2024 11:18 PM [facility] Albumin 3.8 3.2 - 5.0 g/dL LAB CHEMISTRY METHOD 11/18/2024 11:18 PM [facility] Total Bilirubin 0.2 0.0 - 1.4 mg/dL LAB CHEMISTRY METHOD 11/18/2024 11:18 PM [facility] Blood Venous blood specimen / Unknown Venipuncture / Unknown 11/18/2024 10:40 PM EST 11/18/2024 10:51 PM EST us Garth Anaya MD LAB BLOOD ORDERABLES Arielle l Result [facility] [address] [place] [address], * Michelle urine culture tube (11/12/2024 12:34 PM EST) Extra Tube Hold for add-ons. 11/12/2024 3:02 PM [facility] Comment:Auto resulted. Urine Urine specimen obtained by clean catch procedure / Unknown 11/12/2024 12:34 PM EST 11/12/2024 1:03 PM EST Francine ECKERT LAB URINE ORDERABLES Final Resul t Performing Organization Address [facility]/ZIP Co de Phone Number [facility] [address] [place] [address], [place] [phone] * [place] top urine tube (11/12/2024 12:34 PM EST) Extra Tube Hold for add-ons. 11/12/2024 3:02 PM EST [facility] Comment:Auto resulted. Urine Urine specimen obtained by clean catch procedure / Unknown 11/12/2024 12:34 PM EST 11/12/2024 1:03 PM EST Francine ECKERT LAB URINE ORDERABLES Final Resul t Performing Organization Address [facility]/ZIP Co de Phone Number [facility] [address] [place] [address], [place] [phone] from Last 3 Months Insurance [facility] MEDICAID ADVANTAGE Care Teams Colloid Mill Operator Relationship Specialty Start Date End Date Subhash Arceo MD [address] [place] [address] PCP - General Internal Medicine 11/12/24
--- OUTSIDE RECORDS SUMMARY | 2025-01-07 15:37 | XMS_ITS | Encounter Summary ---
Author Organization [facility] Address [address] [place] [address] Care Team Providers Care Fruit And Vegetable Packer Name Role Phone Subhash Arceo MD Primary Care Provider Reason for Visit * Reason Comments Illness Blew .09 on breathal yzer, need medical clearance to return to sober home Encounter Details Date Type Department Care Team (Late st Contact Info) Description 12/22/2024 10:58 PM EST - 12/22/2024 11:52 PM EST Emergency [facility] Emergency [address] [place] [address] Encounter for medical assessment (Primary Dx) Discharge Disposition: Home or Self Care Social History Tobacco Use Types Packs/Day Years Used Date Smoking Tobacco: Every Day Cigarettes Smokeless Tobacco: Current Alcohol Use Standard Drinks/Week Comments Yes 10 (1 standard drink = 0.6 oz pu re alcohol) Sex and Gender Information Value Date Recorded Sex Assigned at Male 11/12/2024 3:50 PM EST Legal Sex Male 10:57 AM EST Gender Identity Male 11/12/2024 3:50 PM EST Sexual Orientation Choose not to disclose 2024 3:54 PM EST documented as of this encounter Last Filed Vital Signs Vital Sign Reading [...] Mass Index 22.81 12/22/2024 9:38 PM EST documented in this encounter Functional Status * Are you deaf or do you have serious difficulty hearing? Answer Date of Assessment Author No 12/22/2024 11:14 PM Jory Deluca RN * Are you blind or do you have serious difficulty seeing, even when wearing glasses? Answer Date of Assessment Author No 12/22/2024 11:14 PM Jory Deluca RN * Do you have serious difficulty dressing or bathing? Answer Date of Assessment Author No 12/22/2024 11:14 PM Jory Deluca RN * Because of a physical, mental, or emotional condition, do you have serious difficulty doing errandsalone such as visiting the doctor? Answer Date of Assessment Author No 12/22/2024 11:14 PM Jory Deluca RN documented as of this encounter Mental Status * Because of a physical, mental, or emotional condition, do you have serious difficulty concentrating, remembering, or making decisions? (5 years old or older) Answer Entry Date Author No 12/22/2024 11:14 PM Jory Deluca RN documented in this encounter Discharge Instructions * Discharge Instructions* TOMEKA Harrell - 12/22/2024 11:47 PM EST You were seen in the emergency department today for medical clearance. Your physical exam was normal. Vital signs were normal. There is no further cause for you to be here in the emergency department. You may return to your sober living facility. documented in this encounter Discharge Disposition Disposition Code Departure Means Destination Comment s Home or Self Care Pt medically cleared to return to sober living facility. Pt ambulated out of ED independently with an even and steady gait. Pt arranged to sober living staff to brass pickler and transport pt back to facility. documented in this encounter Progress Notes * Jt Barnett RN - 12/22/2024 9:38 PM EST Needs medical clearance at [facility] and had a random breathalyzer and was >0.00 * TOMEKA Harrell - 12/22/2024 9:36 PM EST [facility] Emergency Department Encounter Note Patient Name: Da Wharton Initial Evaluation: 12/22/2024 : 2000 Patient's PCP: Subhash Arceo MD Emergency Physician: TOMEKA Dwyer History of Present Illness Chief Complaint: Chief Complaint Patient presents with Illness Blew .09 on breathalyzer, need medical clearance to return to sober home HPI: Pleasant 24-year-old male presents from [facility] facility for medical clearance after reportedly blowing a 0.09 earlier in the evening. Admits to having consumed 2 shots today. Has any other substances. He is entirely asymptomatic. Otherwise denies fever, chills, weakness, c/p, sob, cough, abd pain, n/v/d/c. No headache, LOC, lightheadedness, dizziness. No dysuria, frequency, or hematuria. ROS: I have performed a ROS with the pertinent positives and negatives documented in the history ofpresent illness. Previous History Past Medical History: Diagnosis Date Alcohol abuse Depression History reviewed. No pertinent surgical history. Social History Tobacco Use Smoking status: Every Day Current packs/day: 0.25 Types: Cigarettes Smokeless tobacco: Current Substance Use Topics Alcohol use: Yes Alcohol/week: 10.0 standard drinks of alcohol Types: 10 Shots of liquor per week Drug use: Never No family history on file. has No Known Allergies. No current facility-administered medications on file prior to encounter. No current outpatient medications on file prior to encounter. Physical Exam ED Triage Vitals [12/22/24 2138] Temp Heart Rate Resp BP 37.1 ??C (98.8 ??F) 90 18 119/52 SpO2 Temp Source Heart Rate Source Patient Position 98 % Oral -- -- BP Location FiO2 (%) -- -- GENERAL: Non-toxic appearing, no acute distress. SKIN: [place], warm, dry. HEENT: Normocephalic, atraumatic. EOMI. NECK: Supple, full ROM. CARDIOVASCULAR: Deferred. PULMONARY: Breathing adequately on room air. ABDOMINAL: No active GI upset. MUSCULOSKELETAL: Nonpainful and purposeful movements of all extremities bilaterally, equal strengthbilaterally NEURO: AOx3. No asterixis. Articulate speech. Nonslurred. Upright steady gait without difficulty. PSYCHIATRIC: Normal affect, fluid speech, good eye contact and appropriate demeanor. Results Labs Reviewed - No data to display Abnormal Labs Reviewed - No data to display No orders to display I have discussed the incidental/abnormal imaging and/or lab abnormalities with the patient and haveinstructed them the need for further evaluation and workup with their primary care doctor. I have provided the patient with a paper copy of the abnormality. The laboratory results, imaging results and other diagnostic exam results were reviewed in the EMR. Differential Diagnosis Medical clearance Medical evaluation Polysubstance use Alcohol intoxication ? Medical Decision Making On my exam is NAD, nontoxic-appearing, hemodynamically stable and afebrile. Overall clinical well-appearing. Without any complaints. Physical exam unremarkable. Clinically is sober. No cause for further workup or intervention on emergent basis. Medically and hemodynamically stable, safe for discharge. Discussed this plan with the patient who is agreeable. Red flag symptoms and return precautions discussed, all questions asked and answered, plan for discharge with outpatient follow-up. VHTation software was utilized for documentation and may have resulted in unintentional typographical errors. *All documented times are approximate and may not reflect exact time of care rendered or intervention.* Clinical Impressions as of 12/22/24 2347 Encounter for medical assessment Medications - No data to display Procedures Procedures Diagnosis 1. Encounter for medical assessment Disposition Discharge ED Prescriptions None Physician Attestation documented in this encounter Plan of Treatment Not on file documented as of this encounter Visit Diagnoses Diagnosis Encounter for medical assessment- Primary documented in this encounter Care Teams Fruit And Vegetable Packer Relationship Specialty Start Date End Date Subhash Arceo MD [address] [place] [address] PCP - General Internal Medicine 11/12/24 documented as of this encounter
--- OUTSIDE RECORDS SUMMARY | 2025-01-07 15:37 | XMS_ITS | Clinical Summary ---
Author Organization [facility] Address [address] [place] [id number] Phone Care Team Providers Care Carding Doubler Name Role Phone Jt Hylton MD Primary Care Provider [phone] Allergies No known active allergies Medications sertraline 25 MG tabletIndication s:Reactive depression TAKE 1 TABLET BY MOUTH EVERY DAY 90 tablet 1 11/05/2022 Active Active Problems Problem Noted Date Diagnosed Date Influenza vaccine refused 09/08/2021 Anxiety 03/30/2021 Assessment & Plan (03/30/2021 2:18 PM EDT): Da has anxiety that has been treated with marijuana. He would like to get his medical card. 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 I will refer him to an adult doctor. Attention deficit disorder with hyperactivity Overview (07/11/2018): ADHD (314.01) Onset: 09/23/2016 Added by: Jt Hylton Depression 07/15/2016 Overview (07/11/2018): Depression (311) Onset: 07/15/2016 Added by: Juana Carbajal Assessment & Plan (05/06/2022 9:53 AM EDT): Doing wll We will continue with the same dose Has a good therapist Working again Assessment & Plan (06/25/2021 9:03 AM EDT): Da feels he has a problem with alcohol by drinking nips every day and at work. He is sober for 4 days and feels he can control it. He wants to go back into counseling. He has called latanya Barrera. I suggest he come back to our mental health specialist as a bridge and he will also f/u with me in 1 month. He wants to stop the medication which is fine by me. Call with other issues. Resolved Problems Problem Noted Date Diagnosed Date Resolved Date Mid back pain on right side 05/17/2022 09/10/2022 Assessment & Plan (05/17/2022 3:52 PM EDT): Discussed use of ibuprofen 600mg tid for 5 days, Heat and cold treatments, and then stretching and strengthening exercises in a week or so when it is feeling OK. Traumatic avulsion of nail plate of finger 05/20/2020 06/08/2021 Overview (05/20/2020): 05/19/2020 Donnie LOUIS PA-C. Splinted. Procedure to explore area and for nail bed repair. Assessment & Plan (05/20/2020 2:32 PM EDT): DOS 05/19/2020 Donnie Parker PA-C ?? Left long finger traumatic nail plate avulsion, with likely nail bed laceration. X-rays demonstrate no evidence of foreign body, no obvious fractures noted. ?? Procedure recommended to patient is wound exploration of the left long finger, I&D, and possible nail bed repair. His wound is dressed today, AlumaFoam splint was applied to the digit, he is provided with a note for work today as well. Influenza vaccine refused 10/26/2018 Immunizations Immunization Administration Dates Next Due DTaP 5 07/28/2010, 4,03/31/2001, 000,01/18/2000,1999 HPV Vaccine 9 Valent 07/11/2018,12/28/2016 HPV, Quadrivalent 11/21/2014 Hep A, ped/adol 12/28/2016,11/21/2014 Hep B, ped/adol 12/09/2000,03/21/2000,1999 Hib (PRP-T) 12/09/2000, 0,01/18/2000, 000 IPV 09/11/2004, 1,01/18/2000, 000 MMR 09/11/2004,09/09/2000 Meningococcal Conj (Menactra) MCV4P 12/28/2016,1 Pneumococcal Conjugate 12/09/2000,09/09/2000, Tdap 05/16/2020 Varicella 08/25/2010,09/09/2000 Family History Relation Name Status Comments Brother Mark Alive Father Henry Alive Half-Brother Tong Alive Half-Sister Chen Alive Mother Noemi Alive Sister Alive Social History Tobacco Use Types Packs/Day Years [...] Orientation Straight 07/12/2019 9: 21 AM EDT Last Filed Vital Signs Vital Sign Reading Time Taken Comments Blood Pressure 120/76 09/10/2022 8:03 AM EDT Pulse 109 05/06/2022 9:35 AM EDT Temperature 36.3 ??C (97.4 ??F) 09/10/2022 8:03 AM ED T Respiratory Rate - - Oxygen Saturation - - Inhaled Oxygen Concentration - - Weight 72.8 kg (160 lb 8 oz) 09/10/2022 8:03 AM EDT Height 168 cm (5' 6.14 ) 09/10/2022 8:03 AM EDT Body Mass Index 25.79 09/10/2022 8:03 AM EDT Plan of Treatment Health Maintenance Due Date Last Done Comments Influenza Vaccines (#1) 2024 COVID-19 Vaccine ( season) 2024 01/29/2022 DTaP,Tdap,and Td Vaccines (8 - Td or Tdap) 05/16/2030 05/16/2020, 07/28/2010, 09/11/2004, Additional history exists HIB Vaccines Completed 12/09/2000, 03/07, 01/18/2000, Additional history exists Hepatitis B Vaccines Completed 12/09/2000, 03/21/2000, 1999 Pneumococcal Vaccine Completed 12/09/2000, 09/09/2000, 06/21/2000 IPV Vaccines Completed 09/11/2004, 03/08, 01/18/2000, Additional history exists MMR Vaccines Completed 09/11/2004, 09/09/2000 Varicella Vaccines Completed 08/25/2010, 09/09/2000 Hepatitis A Vaccines Completed 12/28/2016, 11/21/19 15 Meningococcal Vaccine Completed 12/28/2016, 010 HPV Vaccines Completed 07/11/2018, 12/09, 11/21/2014 Men B Vaccine Aged Out No longer elig ible based on patient's age to complete this topic Care Teams Carding Doubler Relationship Specialty Start Date End Date Jt Hylton MD [facility] [place] [address] PCP - General 03/15/18
--- OUTSIDE RECORDS SUMMARY | 2025-01-07 15:37 | XMS_ITS | Encounter Summary ---
Author Organization [facility] Address [address] [place] [address] Phone Care Team Providers Care Assistant Real Estate Manager Name Role Phone Jt Hylton MD Primary Care Provider Encounter Details Date Type Department Care Team (Late st Contact Info) Description 02/18/2011 Conversion Encounter [facility] [address] [place] [address] Social History Tobacco Use Types Packs/Day Years Used Date Smoking Tobacco: Never Assessed Sex and Gender Information Value Date Recorded Sex Assigned at Not on file Legal Sex Male 6:31 PM EDT Gender Identity Not on file Sexual Orientation Straight 07/12/2019 9 :21 AM EDT documented as of this encounter Plan of Treatment Not on file documented as of this encounter Visit Diagnoses Not on filedocumented in this encounter Care Teams Assistant Real Estate Manager Relationship Specialty Start Date End Date Jt Hylton MD [address] [place] [address] PCP - General 03/15/18 documented as of this encounter
--- OUTSIDE RECORDS SUMMARY | 2025-01-07 15:37 | XMS_ITS | Clinical Summary ---
Author Organization [facility] Address [address] [place] [address] Care Team Providers Care Animal Caretaker Name Role Phone Unavailable Primary Care Provider Unavailabl e Source Comments Please note that some or all of the patient's information could have additional privacy protections. State laws allow health care providers to render certain types of treatment to minors without parental consent. Please do not assume that this information can be shared solely by obtaining just the consent of the patient's parent/guardian. Please determine if all or part of the patient's care was rendered without parent/guardian involvement. And, if so, obtain the minor's consent prior to disclosure.[facility] Social History Tobacco Use Types Packs/Day Years Used Date Smoking Tobacco: Never Assessed Sex and Gender Information Value Date Recorded Sex Assigned at Not on file Legal Sex Male 2:27 AM EST Gender Identity Not on file Sexual Orientation Not on file Plan of Treatment Not on file
--- OUTSIDE RECORDS SUMMARY | 2025-01-07 15:37 | XMS_ITS | Clinical Summary ---
Author Organization [facility] Address [address] [place] [address] Care Team Providers Care Ostomy Care Nurse Name Role Phone Unavailable Primary Care Provider Unavailabl e Social History Tobacco Use Types Packs/Day Years Used Date Smoking Tobacco: Never Assessed Sex and Gender Information Value Date Recorded Sex Assigned at Not on file Gender Identity Not on file Sexual Orientation Not on file Plan of Treatment Health Maintenance Due Date Last Done Comments Hepatitis C Virus Screening 1999 HIV Screening 2012 HPV Vaccines (1 - Male 3-dos e series) 2014 DTaP/Tdap/Td Vaccines (1 - Tdap) 2018 Hepatitis B Vaccines (1 of 3 - 19+ 3-dose series) 2018 COVID-19 Vaccine ( - 2023-2 5 season) 2024 Pneumococcal Vaccine: Pediat alice (0-5 Years) and At-Risk Patients (6 to 49 Years) Aged Out No longer eligible b ased on patient's age to complete this topic
== END 2025-01-07 13:32 | disposition home or self-care (01) ==
PROVIDERS: Emergency Provider Emergency Medicine; PCP Internal Medicine
DX: R59.1 Generalized enlarged lymph nodes (principal)
CPT/HCPCS: 76882; 99282; 99284

== ENCOUNTER → 2025-01-07 10:58 | Outpatient (BNV) | payer OTHER, SELFPAY | PROVIDERS: Emergency Provider Emergency Medicine; PCP Internal Medicine; Visit Provider Radiology Diagnostic Radiology | DX: R22.32 Localized swelling, mass and lump, left upper limb (principal) | CPT/HCPCS: 76882 ==

== ENCOUNTER 2025-01-09 08:41 | Outpatient (AMB) | payer OTHER, SELFPAY ==
[2025-01-09 08:49] VITALS: BP 128/79; PULSE 86; BMI 23.0
--- NOTE | 2025-01-09 08:49 | A.OFFVIS_ITS ---
Vital Signs 01/09/25 08:49 Height 5 ft 8 in Weight 151 lb 4 oz BMI 23.0 BP 128/79 Blood Pressure Location Lt brachial Position Sitting Pulse 86 Intake Visit Reasons: Lymphadenopathy Intake Note: This patient presents for lymphadenopathy left axilla. Pt c/o; no complaints. Imagin01/07/2025- Extremity US Oil Burner Installer Required: No Accompanied by: Self / Same As Patient Allergies No Known Allergies Allergy (Verified 01/09/25 08:57) HPI HPI Lymphadenopathy: Details: 24-year-old male here for pain of the axilla. He says that he is felt some swelling and tenderness and pain on his left axilla for about a week now. He went to the ER 2 days ago. He had an ultrasound there which showed an anechoic septated cystic lesion about 2.7 x 2.1 x 2.35 cm likely to be an inflamed lymph node. He was therefore referred to me. He had been started on oral antibiotics. He denies any fever or chills. He denies any lesions or any redness or infection of his left arm. [facility] Medical History (Updated 01/09/25 @ 09:28 by Long Felipe MD) Axillary lymphadenopathy Foreign body in foot, right Surgical History No pertinent past surgical history Family History Other Family history unknown Social History Alcohol intake: current Alcohol intake frequency: 3 or more drinks per day Patient Tobacco Use Status: Never used Tobacco Substance Use Type: Marijuana Review of Systems Const Denies chills and Denies fever(s) Card Denies chest pain, Denies dyspnea and Denies dyspnea on exertion Resp Denies cough, Denies dyspnea and Denies dyspnea on exertion GI Denies hematochezia and Denies change in bowel habits Denies hematuria and Denies difficulty urinating Musc Denies back pain and Denies limited range of motion Neuro Denies focal weakness and Denies convulsions Psych Denies depression and Denies mood swings Physical Exam Vital Signs: Last Vital Signs Pulse 86 01/09/25 08:49 BP 128/79 01/09/25 08:49 BMI result Body Mass Index 23.0 Const General: comfortable and no acute distress Orientation/consciousness: patient oriented x3 Neck Neck: Yes no lymphadenopathy Chest Other: Left axilla with the palpable tender rounded mass, vague, about 2.5 cm, no skin changes, no lesions on the left arm, no evidence of any infection on the left arm, no cellulitis Resp Auscultation: clear to auscultation bilaterally Cardio Rhythm: regular rhythm GI Palpation (GI): Soft to palpation, nontender and no guarding Neuro General: patient oriented x3 Assessment & Plan Assessment & Plan (1) Axillary lymphadenopathy: Code(s): R59.0 - Localized enlarged lymph nodes Category: Medical Plan: He has this mass, tenderness, and pain on the left axilla. His ultrasound shows an anechoic septated cystic lesion that is likely to be an inflamed or infected lymph node He has been started on antibiotics I told him that I will see him again next week to see how is doing. We may need to aspirate this for diagnostic purposes down the line He can take NSAIDs for now for his pain He understands the plan well and is comfortable with this. Coding Level of Care Code New Pt Level 3 (64102) Diagnoses Axillary lymphadenopathy R59.0
--- OUTSIDE RECORDS SUMMARY | 2025-01-09 09:20 | XMS_ITS | Clinical Summary ---
Author Organization [facility] Address [address] [place] [phone] Phone Care Team Providers Care Protective Signal Repairer Name Role Phone Subhash Arceo MD Primary Care Provider [phone] Allergies No known active allergies Encounters Date Type Department Care Team Description 12/22/2024 10:58 PM EST - 12/22/2024 11:52 PM [facility] Emergency [address] [place] [phone] Encounter for medical assessment (Primary Dx) Discharge Disposition: Home or Self Care 11/19/2024 9:19 AM EST - 11/19/2024 9:53 AM [facility] Emergency [address] [place] [phone] Garth Anaya MD Alcohol use disorder (Primary Dx) Discharge Disposition: Home or Self Care 11/12/2024 3:24 PM EST - 11/12/2024 4:04 PM [facility] Emergency [address] [place] [phone] Alcohol use (Primary Dx) Discharge Disposition: Home [...] GEMUSE QTc 412 ms GEMUSE P Wave [place] 30 degrees GEMUSE R [place] 75 degrees GEMUSE T [place] 34 degrees GEMUSE ECG Interpretation Normal sinus rhythm Normal ECG No previous ECGs available Confirmed by uLx MAHAN JOHN ([id number]) on 11/19/2024 10:15:27 PM GEMUSE 11/19/2024 12:0 8 AM EST 11/19/2024 10:15 PM EST us Garth Anaya MD ECG ORDERABLES Final Res ult GEMUSE * Drug abuse screen 8a panel, urine (11/19/2024 12:04 AM EST) Only the most recent of2 resultswithin the time period is included. Amphetamine Screen, Ur Negative Negative LAB CHEMISTRY METHOD 11/19/2024 12:42 AM [facility] Comment:Certain OTC medicati ons containing ephedrine, phenylephrine, pseudoephedrine and phenylpropanolamine can cause false positive results. Barbiturate Screen, Ur Negative Negative LAB CHEMISTRY METHOD 11/19/2024 12:42 AM EST [facility] Benzodiazepine Screen, Ur Negative Negative LAB CHEMISTRY METHOD 11/19/2024 12:42 AM [facility] Cocaine Screen, Ur Negative Negative LAB CHEMISTRY METHOD 11/19/2024 12:42 AM [facility] Opiate Screen, Ur Negative Negative LAB CHEMISTRY METHOD 11/19/2024 12:42 AM [facility] Cannabinoid (THC) Screen, Ur Negative Negative LAB CHEMISTRY METHOD 11/19/2024 12:42 AM [facility] Comment:Specimens from patie nts taking pantoprazole sodium (Protonix) have been shown to produce false positive results. Oxycodone Screen, Ur Negative Negative LAB CHEMISTRY METHOD 11/19/2024 12:42 AM [facility] Fentanyl, Ur Negative Negative LAB CHEMISTRY METHOD 11/19/2024 12:42 AM [facility] Urine Urine specimen obtained by clean catch procedure / Unknown Non-blood Collection / Unknown 11/19/2024 12:04 AM EST 11/19/2024 12:18 AM EST [facility] - 11/19/2024 12:42 AM EST [...] ORDERABLES Arielle l Result Performing Organization Address [facility] de Phone Number [facility] [address] [place] [address], * Buprenorphine screen, urine (11/19/2024 12:04 AM EST) Only the most recent of2 resultswithin the time period is included. Buprenorphine Screen Urine Negative Negative LAB CHEMISTRY METHOD 11/19/2024 12:42 AM EST [facility] Urine Urine specimen obtained by clean catch procedure / Unknown Non-blood Collection / Unknown 11/19/2024 12:04 AM EST 11/19/2024 12:18 AM EST Narrative [facility] - 11/19/2024 12:42 AM EST Assay cutoff 5 ng/mL Semi-quantitative assay for screening purposes only. Unconfirmed screening result should not be used for non-medical purposes. *ALTERNATE METHOD CONFIRMATION DONE UPON REQUEST ONLY* Garth Anaya MD LAB URINE ORDERABLES Arielle l Result Performing Organization Address [facility] de Phone Number [facility] [address] [place] [address], * Methadone, urine (11/19/2024 12:04 AM EST) Only the most recent of2 resultswithin the time period is included. Methadone Screen, Urine Negative Negative LAB CHEMISTRY METHOD 11/19/2024 12:42 AM EST [facility] Comment: Assay cutoff 300 ng/mL [...] ORDERABLES Arielle l Result Performing Organization Address [facility]/ZIP Co de Phone Number [facility] [address] [place] [address], [place] [phone] * Phencyclidine, urine (11/19/2024 12:04 AM EST) Only the most recent of2 resultswithin the time period is included. PCP Scrn, Ur Negative Negative LAB CHEMISTRY METHOD 11/19/2024 12:42 AM EST [facility] Comment: Assay cutoff 25 ng/mL [...] ORDERABLES Arielle l Result Performing Organization Address City/[facility]/ZIP Co de Phone Number [facility] [address] [place] [address], [place] [phone] * ECG-Annotated (11/19/2024) Provider Onbase ECG ORDERABLES Final Result * (ABNORMAL) CBC auto differential (11/18/2024 10:40 PM EST) Only the most recent of2 resultswithin the time period is included. WBC 5.0 4.8 - 10.8 K/mcL LAB HEMETOLOGY METHOD 11/18/2024 10:57 PM EST [facility] RBC 4.90 4.50 - 5.50 M/mcL LAB HEMETOLOGY METHOD 11/18/2024 10:57 PM [facility] Hemoglobin 13.9 13.5 - 17.5 g/dL LAB HEMETOLOGY METHOD 11/18/2024 10:57 PM [facility] Hematocrit 41.3(L) 42.0 - 54.0 % LAB HEMETOLOGY METHOD 11/18/2024 10:57 PM [facility] MCV 84.1 79.0 - 98.0 FL LAB HEMETOLOGY METHOD 11/18/2024 10:57 PM [facility] MCH 28.3 27.0 - 32.0 pcg LAB HEMETOLOGY METHOD 11/18/2024 10:57 PM [facility] MCHC 33.7 32.0 - 37.0 g/dL LAB HEMETOLOGY METHOD 11/18/2024 10:57 PM [facility] RDW 12.2 11.0 - 15.0 % LAB HEMETOLOGY METHOD 11/18/2024 10:57 PM [facility] Platelets 226 130 - 400 K/mcL LAB HEMETOLOGY METHOD 11/18/2024 10:57 PM [facility] MPV 9.2 7.0 - 11.0 FL LAB HEMETOLOGY METHOD 11/18/2024 10:57 PM [facility] NRBC 0.0 <1.0 % LAB HEMETOLOGY METHOD 11/18/2024 10:57 PM [facility] NRBC Absolute 0.00 <0.10 K/mcL LAB HEMETOLOGY METHOD 11/18/2024 10:57 PM [facility] Neutrophils Relative 47.6 % LAB HEMETOLOGY METHOD 11/18/2024 10:57 PM [facility] Lymphocytes Relative 33.7 % LAB HEMETOLOGY METHOD 11/18/2024 10:57 PM [facility] Monocytes Relative 15.5 % LAB HEMETOLOGY METHOD 11/18/2024 10:57 PM [facility] Eosinophils Relative 2.2 % LAB HEMETOLOGY METHOD 11/18/2024 10:57 PM [facility] Basophils Relative 0.8 % LAB HEMETOLOGY METHOD 11/18/2024 10:57 PM [facility] Immature Granulocytes Relative 0.2 % LAB HEMETOLOGY METHOD 11/18/2024 10:57 PM [facility] Neutrophils Absolute 2.37 1.50 - 7.00 K/mcL LAB HEMETOLOGY METHOD 11/18/2024 10:57 PM [facility] Lymphocytes Absolute 1.68 1.00 - 5.00 K/mcL LAB HEMETOLOGY METHOD 11/18/2024 10:57 PM [facility] Monocytes Absolute 0.77 0.20 - 1.00 K/mcL LAB HEMETOLOGY METHOD 11/18/2024 10:57 PM EST [facility] Eosinophils Absolute 0.11 0.00 - 0.50 K/mcL LAB HEMETOLOGY METHOD 11/18/2024 10:57 PM [facility] Basophils Absolute 0.04 0.00 - 0.20 K/mcL LAB HEMETOLOGY METHOD 11/18/2024 10:57 PM [facility] Immature Granulocytes Absolute 0.01 0.00 - 0.03 K/mcL LAB HEMETOLOGY METHOD 11/18/2024 10:57 PM [facility] Blood Venous blood specimen / Unknown Venipuncture / Unknown 11/18/2024 10:40 PM EST 11/18/2024 10:51 PM EST us Garth Anaya MD LAB BLOOD ORDERABLES Arielle l Result [facility] [address] [place] [address], [place] [phone] * Magnesium (11/18/2024 10:40 PM EST) Only the most recent of2 resultswithin the time period is included. Pathologist [facility] Magnesium 2.0 1.9 - 2.6 mg/dL LAB CHEMISTRY METHOD 11/18/2024 11:18 PM EST [facility] Blood Venous blood specimen / Unknown Venipuncture / Unknown 11/18/2024 10:40 PM EST 11/18/2024 10:51 PM EST Garth Anaya MD LAB BLOOD ORDERABLES Arielle l Result Performing Organization Address City/[facility]/ZIP Co de Phone Number [facility] [address] [place] [address], [place] [phone] * Lipase (11/18/2024 10:40 PM EST) Only the most recent of2 resultswithin the time period is included. [facility] Lipase 29 13 - 75 unit/L LAB CHEMISTRY METHOD 11/18/2024 11:18 PM EST [facility] Blood Venous blood specimen / Unknown Venipuncture / Unknown 11/18/2024 10:40 PM EST 11/18/2024 10:51 PM EST Garth Anaya MD LAB BLOOD ORDERABLES Arielle l Result Performing Organization Address City/[facility]/ZIP Co de Phone Number [facility] [address] [place] [address], [place] [phone] * (ABNORMAL) Ethanol (11/18/2024 10:40 PM EST) Only the most recent of2 resultswithin the time period is included. [facility] Ethanol Level 298(H) 0 - 10 mg/dL LAB CHEMISTRY METHOD 11/18/2024 11:37 PM EST [facility] Blood Venous blood specimen / Unknown Venipuncture / Unknown 11/18/2024 10:40 PM EST 11/18/2024 10:51 PM EST us Garth Anaya MD LAB BLOOD ORDERABLES Arielle yesica Result [facility] [address] [place] [address], [place] [phone] * (ABNORMAL) Comprehensive metabolic panel (11/18/2024 10:40 PM EST) Only the most recent of2 resultswithin the time period is included. Sodium 140 133 - 145 mmol/L LAB CHEMISTRY METHOD 11/18/2024 11:18 PM [facility] Potassium 3.3(L) 3.5 - 5.5 mmol/L LAB CHEMISTRY METHOD 11/18/2024 11:18 PM [facility] Chloride 106 96 - 110 mmol/L LAB CHEMISTRY METHOD 11/18/2024 11:18 PM [facility] CO2 29 21 - 32 mmol/L LAB CHEMISTRY METHOD 11/18/2024 11:18 PM [facility] Anion Gap 5 3 - 11 LAB CHEMISTRY METHOD 11/18/2024 11:18 PM [facility] Glucose 114(H) 70 - 100 mg/dL LAB CHEMISTRY METHOD 11/18/2024 11:18 PM [facility] BUN 13 5 - 25 mg/dL LAB CHEMISTRY METHOD 11/18/2024 11:18 PM [facility] Creatinine 1.53(H) 0.70 - 1.30 mg/dL LAB CHEMISTRY METHOD 11/18/2024 11:18 PM [facility] eGFR 64 >=60 mL/min/1. 73m2 LAB CHEMISTRY METHOD 11/18/2024 11:18 PM [facility] Comment:Calculation based on the??Chronic Kidney Disease Epidemiology Collaboration (CKD-EPI) equation refit??without adjustment for race. BUN/Creatinine Ratio 8.5 LAB CHEMISTRY METHOD 11/18/2024 11:18 PM [facility] Calcium 9.2 8.5 - 10.5 mg/dL LAB CHEMISTRY METHOD 11/18/2024 11:18 PM [facility] AST (SGOT) 23 10 - 42 unit/L LAB CHEMISTRY METHOD 11/18/2024 11:18 PM [facility] ALT (SGPT) 23 10 - 60 unit/L LAB CHEMISTRY METHOD 11/18/2024 11:18 PM [facility] Alkaline Phosphatase 107 42 - 121 unit/L LAB CHEMISTRY METHOD 11/18/2024 11:18 PM [facility] Total Protein 7.9 6.0 - 8.0 g/dL LAB CHEMISTRY METHOD 11/18/2024 11:18 PM [facility] Albumin 3.8 3.2 - 5.0 g/dL LAB CHEMISTRY METHOD 11/18/2024 11:18 PM [facility] Total Bilirubin 0.2 0.0 - 1.4 mg/dL LAB CHEMISTRY METHOD 11/18/2024 11:18 PM [facility] Blood Venous blood specimen / Unknown Venipuncture / Unknown 11/18/2024 10:40 PM EST 11/18/2024 10:51 PM EST us Garth Anaya MD LAB BLOOD ORDERABLES Arielle l Result [facility] [address] [place] [address], * Michelle urine culture tube (11/12/2024 12:34 PM EST) Extra Tube Hold for add-ons. 11/12/2024 3:02 PM [facility] Comment:Auto resulted. Urine Urine specimen obtained by clean catch procedure / Unknown 11/12/2024 12:34 PM EST 11/12/2024 1:03 PM EST Francine ECKERT LAB URINE ORDERABLES Final Resul t Performing Organization Address [facility]/ZIP Co de Phone Number [facility] [address] [place] [address], [place] [phone] * Collins top urine tube (11/12/2024 12:34 PM EST) Extra Tube Hold for add-ons. 11/12/2024 3:02 PM EST [facility] Comment:Auto resulted. Urine Urine specimen obtained by clean catch procedure / Unknown 11/12/2024 12:34 PM EST 11/12/2024 1:03 PM EST Francine ECKERT LAB URINE ORDERABLES Final Resul t Performing Organization Address [facility]/ZIP Co de Phone Number [facility] [address] [place] [address], [place] [phone] from Last 3 Months Insurance [facility] MEDICAID ADVANTAGE Care Teams Protective Signal Repairer Relationship Specialty Start Date End Date Subhash Arceo MD [address] [place] [address] PCP - General Internal Medicine 11/12/24
--- OUTSIDE RECORDS SUMMARY | 2025-01-09 09:20 | XMS_ITS | Clinical Summary ---
Author Organization [facility] Address [address] [place] [address] Phone Care Team Providers Care Agency Service Representative Name Role Phone Jt Hylton MD Primary Care Provider [phone] Allergies No known active allergies Medications sertraline 25 MG tabletIndication s:Reactive depression TAKE 1 TABLET BY MOUTH EVERY DAY 90 tablet 1 11/05/2022 Active Active Problems Problem Noted Date Diagnosed Date Influenza vaccine refused 09/08/2021 Anxiety 03/30/2021 Assessment & Plan (03/30/2021 2:18 PM EDT): Da has anxiety that has been treated with marijuana. He would like to get his medical card. 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 I will [...] age to complete this topic Care Teams Agency Service Representative Relationship Specialty Start Date End Date Jt Hylton MD [facility] [place] [address] PCP - General 03/15/18
--- OUTSIDE RECORDS SUMMARY | 2025-01-09 09:20 | XMS_ITS | Encounter Summary ---
Author Organization [facility] Address [address] [place] [address] Phone Care Team Providers Care Author Name Role Phone Jt Hylton MD Primary Care Provider [phone] Reason for Visit * Reason Comments Med Refill Encounter Details Date Type Department Care Team (Late st Contact Info) Description 09/27/2023 Refill [facility] [address] [place] [address] [place] [address] Jt Hylton MD [address] [place] [address] [place] [address] Reactive depression Social History Tobacco Use Types [...] depression documented in this encounter Care Teams Author Relationship Specialty Start Date End Date Jt Hylton MD [facility] [place] [address] PCP - General 03/15/18 documented as of this encounter
--- OUTSIDE RECORDS SUMMARY | 2025-01-09 09:20 | XMS_ITS | Encounter Summary ---
Author Organization [facility] [place] [address] Care Team Providers Care Academic Advisement Director Name Role Phone Subhash Arceo MD Primary Care Provider [phone] Reason for Visit * Reason Comments Illness Blew .09 on breathal yzer, need medical clearance to return to sober home Encounter Details Date Type Department Care Team (Late st Contact Info) Description 12/22/2024 10:58 PM EST - 12/22/2024 11:52 PM EST Emergency [facility] Emergency [address] [place] [address] Encounter for medical assessment (Primary [...] Pt arranged to sober living staff to pick up and delivery driver and transport pt back to facility. documented in this encounter Progress Notes * Jt Barnett RN - 12/22/2024 9:38 PM EST Needs medical clearance at [facility] and had a random breathalyzer and was >0.00 * TOMEKA Harrell - 12/22/2024 9:36 PM EST [facility] Emergency Department Encounter Note Patient Name: Da Wharton Initial Evaluation: 12/22/2024 : 2000 Patient's PCP: Subhash Arceo MD Emergency Physician: TOMEKA Dwyer History of Present Illness Chief Complaint: Chief Complaint Patient presents with Illness Blew .09 on breathalyzer, need medical clearance to return to sober home HPI: Pleasant 24-year-old male presents from [facility] facility for medical clearance after reportedly [...] GENERAL: Non-toxic appearing, no acute distress. SKIN: [place], warm, dry. HEENT: Normocephalic, atraumatic. EOMI. NECK: [...] answered, plan for discharge with outpatient follow-up. Paper[employer] software was utilized for documentation and may [...] Primary documented in this encounter Care Teams Academic Advisement Director Relationship Specialty Start Date End Date Subhash Arceo MD [address] [place] [address] PCP - General Internal Medicine 11/12/24 documented as of this encounter
--- OUTSIDE RECORDS SUMMARY | 2025-01-09 09:20 | XMS_ITS | Clinical Summary ---
Author Organization [facility] Address [address] [place] [address] Care Team Providers Care Financial Developer Name Role Phone Unavailable Primary Care Provider [...] so, obtain the minor's consent prior to disclosure.[facility] Social History Tobacco Use Types Packs/Day Years Used Date Smoking Tobacco: Never Assessed Sex and Gender Information Value Date Recorded Sex Assigned at Not on file Legal Sex Male 2:27 AM EST Gender Identity Not on file Sexual Orientation Not on file Plan of Treatment Not on file
--- OUTSIDE RECORDS SUMMARY | 2025-01-09 09:20 | XMS_ITS | Encounter Summary ---
Author Organization [facility] Address [address] [place] [address] Phone Care Team Providers Care Front Desk Receptionist Name Role Phone Jt Hylton MD Primary Care Provider [phone] Encounter Details Date Type Department Care Team (Late st Contact Info) Description 02/18/2011 Conversion Encounter [facility] [address] [facility] [place] [address] Social History Tobacco Use Types Packs/Day Years [...] on filedocumented in this encounter Care Teams Front Desk Receptionist Relationship Specialty Start Date End Date Jt Hylton MD [address] [facility] [place] [address] PCP - General 03/15/18 documented as of this encounter
--- OUTSIDE RECORDS SUMMARY | 2025-01-09 09:20 | XMS_ITS | Clinical Summary ---
Author Organization [facility] Address [address] [place] [address] Care Team Providers Care Manager Test Name Role Phone Unavailable Primary Care Provider [...]
== END 2025-01-09 09:26 | disposition home or self-care (01) ==
PROVIDERS: PCP Internal Medicine; Visit Provider Surgery
DX: R59.0 Localized enlarged lymph nodes (principal)
CPT/HCPCS: 99203

== ENCOUNTER → 2025-01-09 08:41 | Outpatient (BNVA) | payer OTHER, SELFPAY | PROVIDERS: PCP Internal Medicine; Visit Provider Surgery | DX: R59.0 Localized enlarged lymph nodes (principal); M79.622 Pain in left upper arm | CPT/HCPCS: 99202 ==

== ENCOUNTER 2025-01-16 08:30 | Outpatient (AMB) | payer OTHER, SELFPAY ==
--- NOTE | 2025-01-16 08:31 | A.OFFVIS_ITS ---
Vital Signs 01/16/25 08:38 Height 5 ft 8 in Weight 150 lb 4 oz BMI 22.8 BP 129/71 Blood Pressure Location Rt brachial Position Sitting Pulse 116 H Intake Visit Reasons: 1 week follow up Lymphadenopathy Intake Note: This patient presents for one week follow-up for axillary lymphadenopathy. Pt c/o; completed antibiotics, reports still has pain/discomfort left axilla. Residential Assistant Required: No Accompanied by: Self / Same As Patient Allergies No Known Allergies Allergy (Verified 01/16/25 08:39) Medication List - Last Reconciled 01/16/25 by Long Felipe MD amoxicillin-pot clavulanate 875-125 mg 1 tab PO BID amoxicillin-pot clavulanate 875-125 mg 1 tab PO BID cephalexin 500 mg PO Q8H 7 days chlordiazepoxide HCl 25 mg PO Q6-8H PRN naltrexone mg PO DAILY omeprazole 20 mg PO BID ondansetron 4 mg PO Q8H PRN sertraline mg PO DAILY HPI HPI 1 week follow up Lymphadenopathy: Details: He is here for follow-up for an enlarged swollen tender lymph node in the left axilla. He now feels much better. He says that the swelling and tenderness have improved significantly. He had been on antibiotics. He denies any fever or chills [facility] Medical History Axillary lymphadenopathy Foreign body in foot, right Surgical History No pertinent past surgical history Family History Other Family history unknown Social History Alcohol intake: current Alcohol intake frequency: 3 or more drinks per day Patient Tobacco Use Status: Never used Tobacco Substance Use Type: Marijuana Review of Systems Const Denies chills and Denies fever(s) Card Denies chest pain, Denies dyspnea and Denies dyspnea on exertion Resp Denies cough, Denies dyspnea and Denies dyspnea on exertion GI Denies hematochezia and Denies change in bowel habits Denies hematuria and Denies difficulty urinating Musc Denies back pain and Denies limited range of motion Neuro Denies focal weakness and Denies convulsions Psych Denies depression and Denies mood swings Physical Exam Vital Signs: Last Vital Signs Pulse 116 H 01/16/25 08:38 BP 129/71 01/16/25 08:38 BMI result Body Mass Index 22.8 Const General: comfortable and no acute distress Chest Other: Left axilla with a palpable lymph node but much smaller than last week, probably about 1 cm, not tender anymore Extrem Other: No evidence of any infection or inflammation or trauma on the left arm Assessment & Plan Assessment & Plan (1) Axillary lymphadenopathy: Code(s): R59.0 - Localized enlarged lymph nodes Category: Medical Plan: He feels much better. He says that the swelling on his left axilla has improved markedly. He denies any significant tenderness although he still feels a little bit of fullness . Examination shows that the enlarged lymph node has decreased in size considerably and is no longer tender. I did tell him that I would like to see him again in about a month to re-examine him. He understands the plan and is comfortable with this. I told him that we may need to repeat the ultrasound down the line. Coding Level of Care Code Est Pt Level 3 (72825) Diagnoses Axillary lymphadenopathy R59.0
[2025-01-16 08:38] VITALS: BP 129/71; PULSE 116; BMI 22.8
--- OUTSIDE RECORDS SUMMARY | 2025-01-16 09:01 | XMS_ITS | Clinical Summary ---
Author Organization [facility] Address [address] [place] [address] Phone Care Team Providers Care Control Officer Manager Name Role Phone Jt Hylton MD Primary Care Provider Allergies No known active allergies Medications sertraline 25 MG tabletIndication s:Reactive depression TAKE 1 TABLET BY MOUTH EVERY DAY 90 tablet 1 11/05/2022 Active Active Problems Problem Noted Date Diagnosed Date Influenza vaccine refused 09/08/2021 Anxiety 03/30/2021 Assessment & Plan (03/30/2021 2:18 PM EDT): Da has anxiety that has been treated with marijuana. He would like to get his medical card. 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 I will [...] age to complete this topic Care Teams Control Officer Manager Relationship Specialty Start Date End Date Jt Hylton MD [facility] [place] [address] PCP - General 03/15/18
--- OUTSIDE RECORDS SUMMARY | 2025-01-16 09:02 | XMS_ITS | Encounter Summary ---
Author Organization [facility] Address [address] [place] [address] Phone Care Team Providers Care Senior Software Tester Name Role Phone Jt Hylton MD Primary Care Provider [phone] Reason for Visit * Reason Comments Med Refill Encounter Details Date Type Department Care Team (Late st Contact Info) Description 09/27/2023 Refill [facility] [address] [place] [address] [place] [address] Jt Hylton MD [address] [place] [address] [place] [address] Reactive depression Social History Tobacco Use Types [...] depression documented in this encounter Care Teams Senior Software Tester Relationship Specialty Start Date End Date Jt Hylton MD [facility] [facility] [place] [address] PCP - General 03/15/18 documented as of this encounter
--- OUTSIDE RECORDS SUMMARY | 2025-01-16 09:02 | XMS_ITS | Encounter Summary ---
Author Organization [facility] Address [address] [place] [address] Phone Care Team Providers Care Hemodialysis Technician Name Role Phone Jt Hylton MD Primary Care Provider Encounter Details Date Type Department Care Team (Late st Contact Info) Description 02/18/2011 Conversion Encounter [facility] [address] [facility] [place] [address] Social History Tobacco Use Types Packs/Day Years [...] on filedocumented in this encounter Care Teams Hemodialysis Technician Relationship Specialty Start Date End Date Jt Hylton MD [address] [facility] [place] [address] PCP - General 03/15/18 documented as of this encounter
--- OUTSIDE RECORDS SUMMARY | 2025-01-16 09:02 | XMS_ITS | Encounter Summary ---
Author Organization locr [facility] Address [address] [place] [address] Care Team Providers Care Field Superintendent Name Role Phone Subhash Arceo MD Primary Care Provider [phone] Reason for Visit * Reason Comments Illness Blew .09 on breathal yzer, need medical clearance to return to sober home Encounter Details Date Type Department Care Team (Late st Contact Info) Description 12/22/2024 10:58 PM EST - 12/22/2024 11:52 PM EST Emergency [facility] Emergency [address] [place] [address] Encounter for medical assessment (Primary [...] Pt arranged to sober living staff to potato picker and transport pt back to facility. documented in this encounter Progress Notes * Jt Barnett RN - 12/22/2024 9:38 PM EST [place]eds medical [place] [facility] [place] 2[place] and had a random breathalyzer and was >0.00 * TOMEKA Harrell - 12/22/2024 9:36 PM EST [facility] Emergency Department Encounter Note Patient Name: Da Wharton Initial Evaluation: 12/22/2024 : 2000 Patient's PCP: Subhash Arceo MD Emergency Physician: TOMEKA Dwyer History of Present Illness Chief Complaint: Chief Complaint Patient presents with Illness Blew .09 on breathalyzer, need medical clearance to return to sober home HPI: Pleasant 24-year-old male presents from [facility] facility for medical clearance after reportedly blowing [...] GENERAL: Non-toxic appearing, no acute distress. SKIN: [place], warm, dry. HEENT: Normocephalic, atraumatic. EOMI. NECK: [...] answered, plan for discharge with outpatient follow-up. [employer] software was utilized for documentation and may [...] Primary documented in this encounter Care Teams Field Superintendent Relationship Specialty Start Date End Date Subhash Arceo MD [address] [place] [address] PCP - General Internal Medicine 11/12/24 documented as of this encounter
--- OUTSIDE RECORDS SUMMARY | 2025-01-16 09:02 | XMS_ITS | Clinical Summary ---
Author Organization [facility] Address [address] [place] [address] Care Team Providers Care Igniter Capper Name Role Phone Unavailable Primary Care Provider [...]
--- OUTSIDE RECORDS SUMMARY | 2025-01-16 09:02 | XMS_ITS | Clinical Summary ---
Author Organization [facility] Address [address] [place] [address] Care Team Providers Care Voltage Inspector Name Role Phone Unavailable Primary Care Provider [...] so, obtain the minor's consent prior to disclosure.[facility] Social History Tobacco Use Types Packs/Day Years Used Date Smoking Tobacco: Never Assessed Sex and Gender Information Value Date Recorded Sex Assigned at Not on file Legal Sex Male 2:27 AM EST Gender Identity Not on file Sexual Orientation Not on file Plan of Treatment Not on file
--- OUTSIDE RECORDS SUMMARY | 2025-01-16 09:02 | XMS_ITS | Clinical Summary ---
Author Organization [facility] Address [address] [place] [phone] Phone Care Team Providers Care High School Coordinator Name Role Phone Subhash Arceo MD Primary Care Provider [phone] Allergies No known active allergies Encounters Date Type Department Care Team Description 12/22/2024 10:58 PM EST - 12/22/2024 11:52 PM [facility] Emergency [address] [place] [phone] Encounter for medical assessment (Primary Dx) Discharge Disposition: Home or Self Care 11/19/2024 9:19 AM EST - 11/19/2024 9:53 AM [facility] Emergency [address] [place] [phone] Garth Anaya MD Alcohol use disorder (Primary Dx) Discharge Disposition: Home or Self Care 11/12/2024 3:24 PM EST - 11/12/2024 4:04 PM [facility] Emergency [address] [place] [phone] Alcohol use (Primary Dx) Discharge Disposition: Home [...] GEMUSE QTc 412 ms GEMUSE P Wave Leakey 30 degrees GEMUSE R Leakey 75 degrees GEMUSE T Leakey 34 degrees GEMUSE ECG Interpretation Normal sinus rhythm Normal ECG No previous ECGs available Confirmed by Lux MAHAN JOHN ([id number]) on 11/19/2024 10:15:27 PM GEMUSE 11/19/2024 12:0 8 AM EST 11/19/2024 10:15 PM EST us Garth Anaya MD ECG ORDERABLES Final Res ult GEMUSE * Drug abuse screen 8a panel, urine (11/19/2024 12:04 AM EST) Only the most recent of2 resultswithin the time period is included. Amphetamine Screen, Ur Negative Negative LAB CHEMISTRY METHOD 11/19/2024 12:42 AM [facility] Comment:Certain OTC medicati ons containing ephedrine, phenylephrine, pseudoephedrine and phenylpropanolamine can cause false positive results. Barbiturate Screen, Ur Negative Negative LAB CHEMISTRY METHOD 11/19/2024 12:42 AM EST [facility] Benzodiazepine Screen, Ur Negative Negative LAB CHEMISTRY METHOD 11/19/2024 12:42 AM [facility] Cocaine Screen, Ur Negative Negative LAB CHEMISTRY METHOD 11/19/2024 12:42 AM [facility] Opiate Screen, Ur Negative Negative LAB CHEMISTRY METHOD 11/19/2024 12:42 AM [facility] Cannabinoid (THC) Screen, Ur Negative Negative LAB CHEMISTRY METHOD 11/19/2024 12:42 AM [facility] Comment:Specimens from patie nts taking pantoprazole sodium (Protonix) have been shown to produce false positive results. Oxycodone Screen, Ur Negative Negative LAB CHEMISTRY METHOD 11/19/2024 12:42 AM [facility] Fentanyl, Ur Negative Negative LAB CHEMISTRY METHOD 11/19/2024 12:42 AM [facility] Urine Urine specimen obtained by clean catch procedure / Unknown Non-blood Collection / Unknown 11/19/2024 12:04 AM EST 11/19/2024 12:18 AM EST [facility] - 11/19/2024 12:42 AM EST [...] ORDERABLES Arielle l Result Performing Organization Address [facility] de Phone Number [facility] [address] [place] [address], * Buprenorphine screen, urine (11/19/2024 12:04 AM EST) Only the most recent of2 resultswithin the time period is included. Buprenorphine Screen Urine Negative Negative LAB CHEMISTRY METHOD 11/19/2024 12:42 AM EST [facility] Urine Urine specimen obtained by clean catch procedure / Unknown Non-blood Collection / Unknown 11/19/2024 12:04 AM EST 11/19/2024 12:18 AM EST Narrative [facility] - 11/19/2024 12:42 AM EST Assay cutoff 5 ng/mL Semi-quantitative assay for screening purposes only. Unconfirmed screening result should not be used for non-medical purposes. *ALTERNATE METHOD CONFIRMATION DONE UPON REQUEST ONLY* Garth Anaya MD LAB URINE ORDERABLES Arielle l Result Performing Organization Address [facility] de Phone Number [facility] [address] [place] [address], * Methadone, urine (11/19/2024 12:04 AM EST) Only the most recent of2 resultswithin the time period is included. Methadone Screen, Urine Negative Negative LAB CHEMISTRY METHOD 11/19/2024 12:42 AM EST [facility] Comment: Assay cutoff 300 ng/mL [...] ORDERABLES Arielle l Result Performing Organization Address [facility]/ZIP Co de Phone Number [facility] [address] [place] [address], [place] [phone] * Phencyclidine, urine (11/19/2024 12:04 AM EST) Only the most recent of2 resultswithin the time period is included. PCP Scrn, Ur Negative Negative LAB CHEMISTRY METHOD 11/19/2024 12:42 AM EST [facility] Comment: Assay cutoff 25 ng/mL [...] ORDERABLES Arielle l Result Performing Organization Address City/[facility]/ZIP Co de Phone Number [facility] [address] [place] [address], [place] [phone] * ECG-Annotated (11/19/2024) Provider Onbase ECG ORDERABLES Final Result * (ABNORMAL) CBC auto differential (11/18/2024 10:40 PM EST) Only the most recent of2 resultswithin the time period is included. WBC 5.0 4.8 - 10.8 K/mcL LAB HEMETOLOGY METHOD 11/18/2024 10:57 PM EST [facility] RBC 4.90 4.50 - 5.50 M/mcL LAB HEMETOLOGY METHOD 11/18/2024 10:57 PM [facility] Hemoglobin 13.9 13.5 - 17.5 g/dL LAB HEMETOLOGY METHOD 11/18/2024 10:57 PM [facility] Hematocrit 41.3(L) 42.0 - 54.0 % LAB HEMETOLOGY METHOD 11/18/2024 10:57 PM [facility] MCV 84.1 79.0 - 98.0 FL LAB HEMETOLOGY METHOD 11/18/2024 10:57 PM [facility] MCH 28.3 27.0 - 32.0 pcg LAB HEMETOLOGY METHOD 11/18/2024 10:57 PM [facility] MCHC 33.7 32.0 - 37.0 g/dL LAB HEMETOLOGY METHOD 11/18/2024 10:57 PM [facility] RDW 12.2 11.0 - 15.0 % LAB HEMETOLOGY METHOD 11/18/2024 10:57 PM [facility] Platelets 226 130 - 400 K/mcL LAB HEMETOLOGY METHOD 11/18/2024 10:57 PM [facility] MPV 9.2 7.0 - 11.0 FL LAB HEMETOLOGY METHOD 11/18/2024 10:57 PM [facility] NRBC 0.0 <1.0 % LAB HEMETOLOGY METHOD 11/18/2024 10:57 PM [facility] NRBC Absolute 0.00 <0.10 K/mcL LAB HEMETOLOGY METHOD 11/18/2024 10:57 PM [facility] Neutrophils Relative 47.6 % LAB HEMETOLOGY METHOD 11/18/2024 10:57 PM [facility] Lymphocytes Relative 33.7 % LAB HEMETOLOGY METHOD 11/18/2024 10:57 PM [facility] Monocytes Relative 15.5 % LAB HEMETOLOGY METHOD 11/18/2024 10:57 PM [facility] Eosinophils Relative 2.2 % LAB HEMETOLOGY METHOD 11/18/2024 10:57 PM [facility] Basophils Relative 0.8 % LAB HEMETOLOGY METHOD 11/18/2024 10:57 PM [facility] Immature Granulocytes Relative 0.2 % LAB HEMETOLOGY METHOD 11/18/2024 10:57 PM [facility] Neutrophils Absolute 2.37 1.50 - 7.00 K/mcL LAB HEMETOLOGY METHOD 11/18/2024 10:57 PM [facility] Lymphocytes Absolute 1.68 1.00 - 5.00 K/mcL LAB HEMETOLOGY METHOD 11/18/2024 10:57 PM [facility] Monocytes Absolute 0.77 0.20 - 1.00 K/mcL LAB HEMETOLOGY METHOD 11/18/2024 10:57 PM EST [facility] Eosinophils Absolute 0.11 0.00 - 0.50 K/mcL LAB HEMETOLOGY METHOD 11/18/2024 10:57 PM [facility] Basophils Absolute 0.04 0.00 - 0.20 K/mcL LAB HEMETOLOGY METHOD 11/18/2024 10:57 PM [facility] Immature Granulocytes Absolute 0.01 0.00 - 0.03 K/mcL LAB HEMETOLOGY METHOD 11/18/2024 10:57 PM [facility] Blood Venous blood specimen / Unknown Venipuncture / Unknown 11/18/2024 10:40 PM EST 11/18/2024 10:51 PM EST us Garth Anaya MD LAB BLOOD ORDERABLES Arielle l Result [facility] [address] [place] [address], [place] [phone] * Magnesium (11/18/2024 10:40 PM EST) Only the most recent of2 resultswithin the time period is included. Pathologist [facility] Magnesium 2.0 1.9 - 2.6 mg/dL LAB CHEMISTRY METHOD 11/18/2024 11:18 PM EST [facility] Blood Venous blood specimen / Unknown Venipuncture / Unknown 11/18/2024 10:40 PM EST 11/18/2024 10:51 PM EST Garth Anaya MD LAB BLOOD ORDERABLES Arielle l Result Performing Organization Address City/[facility]/ZIP Co de Phone Number [facility] [address] [place] [address], [place] [phone] * Lipase (11/18/2024 10:40 PM EST) Only the most recent of2 resultswithin the time period is included. [facility] Lipase 29 13 - 75 unit/L LAB CHEMISTRY METHOD 11/18/2024 11:18 PM EST [facility] Blood Venous blood specimen / Unknown Venipuncture / Unknown 11/18/2024 10:40 PM EST 11/18/2024 10:51 PM EST Garth Anaya MD LAB BLOOD ORDERABLES Arielle l Result Performing Organization Address City/[facility]/ZIP Co de Phone Number [facility] [address] [place] [address], [place] [phone] * (ABNORMAL) Ethanol (11/18/2024 10:40 PM EST) Only the most recent of2 resultswithin the time period is included. [facility] Ethanol Level 298(H) 0 - 10 mg/dL LAB CHEMISTRY METHOD 11/18/2024 11:37 PM EST [facility] Blood Venous blood specimen / Unknown Venipuncture / Unknown 11/18/2024 10:40 PM EST 11/18/2024 10:51 PM EST us Garth Anaya MD LAB BLOOD ORDERABLES Arielle yesica Result [facility] [address] [place] [address], [place] [phone] * (ABNORMAL) Comprehensive metabolic panel (11/18/2024 10:40 PM EST) Only the most recent of2 resultswithin the time period is included. Sodium 140 133 - 145 mmol/L LAB CHEMISTRY METHOD 11/18/2024 11:18 PM [facility] Potassium 3.3(L) 3.5 - 5.5 mmol/L LAB CHEMISTRY METHOD 11/18/2024 11:18 PM [facility] Chloride 106 96 - 110 mmol/L LAB CHEMISTRY METHOD 11/18/2024 11:18 PM [facility] CO2 29 21 - 32 mmol/L LAB CHEMISTRY METHOD 11/18/2024 11:18 PM [facility] Anion Gap 5 3 - 11 LAB CHEMISTRY METHOD 11/18/2024 11:18 PM [facility] Glucose 114(H) 70 - 100 mg/dL LAB CHEMISTRY METHOD 11/18/2024 11:18 PM [facility] BUN 13 5 - 25 mg/dL LAB CHEMISTRY METHOD 11/18/2024 11:18 PM [facility] Creatinine 1.53(H) 0.70 - 1.30 mg/dL LAB CHEMISTRY METHOD 11/18/2024 11:18 PM [facility] eGFR 64 >=60 mL/min/1. 73m2 LAB CHEMISTRY METHOD 11/18/2024 11:18 PM [facility] Comment:Calculation based on the??Chronic Kidney Disease Epidemiology Collaboration (CKD-EPI) equation refit??without adjustment for race. BUN/Creatinine Ratio 8.5 LAB CHEMISTRY METHOD 11/18/2024 11:18 PM [facility] Calcium 9.2 8.5 - 10.5 mg/dL LAB CHEMISTRY METHOD 11/18/2024 11:18 PM [facility] AST (SGOT) 23 10 - 42 unit/L LAB CHEMISTRY METHOD 11/18/2024 11:18 PM [facility] ALT (SGPT) 23 10 - 60 unit/L LAB CHEMISTRY METHOD 11/18/2024 11:18 PM [facility] Alkaline Phosphatase 107 42 - 121 unit/L LAB CHEMISTRY METHOD 11/18/2024 11:18 PM [facility] Total Protein 7.9 6.0 - 8.0 g/dL LAB CHEMISTRY METHOD 11/18/2024 11:18 PM [facility] Albumin 3.8 3.2 - 5.0 g/dL LAB CHEMISTRY METHOD 11/18/2024 11:18 PM [facility] Total Bilirubin 0.2 0.0 - 1.4 mg/dL LAB CHEMISTRY METHOD 11/18/2024 11:18 PM [facility] Blood Venous blood specimen / Unknown Venipuncture / Unknown 11/18/2024 10:40 PM EST 11/18/2024 10:51 PM EST us Garth Anaya MD LAB BLOOD ORDERABLES Arielle l Result [facility] [address] [place] [address], * Michelle urine culture tube (11/12/2024 12:34 PM EST) Extra Tube Hold for add-ons. 11/12/2024 3:02 PM [facility] Comment:Auto resulted. Urine Urine specimen obtained by clean catch procedure / Unknown 11/12/2024 12:34 PM EST 11/12/2024 1:03 PM EST Francine ECKERT LAB URINE ORDERABLES Final Resul t Performing Organization Address [facility]/ZIP Co de Phone Number [facility] [address] [place] [address], [place] [phone] * [place] top urine tube (11/12/2024 12:34 PM EST) Extra Tube Hold for add-ons. 11/12/2024 3:02 PM EST [facility] Comment:Auto resulted. Urine Urine specimen obtained by clean catch procedure / Unknown 11/12/2024 12:34 PM EST 11/12/2024 1:03 PM EST Francine ECKERT LAB URINE ORDERABLES Final Resul t Performing Organization Address [facility]/ZIP Co de Phone Number [facility] [address] [place] [address], [place] [phone] from Last [address] [facility] MEDICAID ADVANTAGE Care Teams High School Coordinator Relationship Specialty Start Date End Date Subhash Arceo MD [address] [place] [address] PCP - General Internal Medicine 11/12/24
== END 2025-01-16 08:43 | disposition home or self-care (01) ==
LOC: HO.HGS 08:31
PROVIDERS: PCP Internal Medicine; Visit Provider Surgery
DX: R59.0 Localized enlarged lymph nodes (principal)
CPT/HCPCS: 99213

== ENCOUNTER → 2025-01-16 08:30 | Outpatient (BNVA) | payer OTHER, SELFPAY | PROVIDERS: PCP Internal Medicine; Visit Provider Surgery | DX: R59.0 Localized enlarged lymph nodes (principal) | CPT/HCPCS: 99212 ==